=== PATIENT | male | born 1950 | race Caucasian/White ===

== ENCOUNTER 2016-12-31 13:36 | Inpatient (IN) | payer OTHER ==
--- NOTE | ~2016-12-31 | CN ---
Consultation Report [facility] [address] [place]. [address] NAME: SHONA BILLINGSLEY : 46 STATUS : ADM IN [facility]#: [id number] AGE: 66 ADM/REG DATE : 12/31/16 MR#: [id number] REPORT SERV DATE: 01/17/17 DICTATED BY: TAVON MASCORRO DATE: 01/17/17 REPORT STATUS : Draft TRANSCRIBED BY: MODL DATE: 01/17/17 DATE OF CONSULTATION: 01/17/2017 REASON FOR CONSULTATION: SVT with hemodynamic instability. HISTORY OF PRESENT ILLNESS: Mr. Billingsley is a 66-year-old man who was admitted to [facility] on 01/01/2017 with a chief complaint of shortness of breath and weakness. The patient was found to have severe anemia with a white blood cell count of 26,900. 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 The patient apparently has received chemotherapy for this. Since that time, the patient has developed a profound neutropenia, thrombocytopenia, and anemia. The patient apparently also has a diffuse colitis. Late last night, the patient developed a supraventricular tachycardia with rapid ventricular response. The patient was refractory to attempted treatment with diltiazem and esmolol. The patient developed hypotension when treated with both of these agents. The patient was later started on amiodarone. He suffered hypoxic respiratory failure earlier this morning. Cardiology service has been consulted urgently for management of the patient's SVT. The patient underwent rapid sequence intubation shortly after I arrived at the bedside. Shortly after administration of sedatives, the patient converted to normal sinus rhythm with a rate of 95 beats per minute. PAST MEDICAL HISTORY: Hypertension. The patient apparently had no other major medical problems. PAST SURGICAL HISTORY: Noncontributory. FAMILY HISTORY: The patient's parents both survived into their 80s and 90s. He has one healthy brother and two sons. There is no family history of early coronary heart disease or sudden cardiac . SOCIAL HISTORY: The patient is a long-time cigarette smoker for 42 years, but quit six years ago. He has a roughly [id number] smoking history. The patient has used alcohol in the past, but denies current alcohol use. The patient is and lives in [place], [place]. REVIEW OF SYSTEMS: Review of systems could not be performed as the patient is currently intubated and sedated. PHYSICAL EXAMINATION: VITAL SIGNS: Temperature is 100.9 degrees Fahrenheit, blood pressure is 90/52 mmHg, heart rate was 155 beats per minute prior to the patient's spontaneous conversion to normal sinus rhythm, but is presently approximately 90 beats per minute, oxygen saturation is 97% on mechanical ventilation. CONSTITUTIONAL: The patient is an overweight white man, who is currently intubated and sedated. EYES: PERRL, EOMI, clear conjunctiva. Consultation Report [place] [id number] [place]. [address] NAME: SHONA BILLINGSLEY : 46 STATUS : ADM IN [facility]#: [id number] AGE: 66 ADM/REG DATE : 12/31/16 MR#: [id number] REPORT SERV DATE: 01/17/17 DICTATED BY: TAVON MASCORRO DATE: 01/17/17 REPORT STATUS : Draft TRANSCRIBED BY: MINA DATE: 01/17/17 HEAD/MNT: NCAT with moist mucous membranes and grossly normal hard and soft palate. NECK: Supple with no obvious thyromegaly or lymphadenopathy CARDIOVASCULAR: There is a regular rhythm with a normal S1 and a physiologically split second heart sound. Heart sounds are somewhat distant; however, no significant murmurs, rubs, or gallops are noted at this time. The jugular venous pressure could not be estimated. PULMONARY: There is a diffuse expiratory wheeze noted. The lungs are otherwise clear to auscultation bilaterally with no rales appreciated. ABDOMINAL: There is moderate distention and tympany with hypoactive bowel sounds. No obvious organomegaly is noted. EXTREMITIES: There is no significant clubbing, cyanosis, or edema. A petechial rash is noted over both of the patient's feet. MUSCULOSKELETAL: Grossly normal strength and range of motion in all extremities INTEGUMENTARY: Skin appears intact with no bruises, wounds or active lesions noted NEURO/PSYC: Alert and oriented x3, with no dysarthria, facial droop or lateralizing weakness noted. 12-LEAD EKG: The patient's 12-lead EKG shows supraventricular tachycardia with what appears to be typical flutter and nonspecific ST/T-wave changes. A repeat EKG is pending, now that the patient has converted to normal sinus rhythm. CHEST X-RAY: This shows mild pulmonary vascular congestion with a grossly normal cardiomediastinal silhouette and no other acute abnormality. LABORATORY DATA: Metabolic profile shows a procalcitonin of 65.8, sodium is 139, potassium is 3.4, chloride is 102, CO2 is 23, BUN 37, creatinine is 1.91, glucose 154, calcium 6.3, magnesium 3.1, phosphorus is 2.2, total protein is 4.6, albumin 1.4, ALT is elevated at 78, AST is elevated at 106, troponin I is 0.37. TSH is 0.375. Vancomycin level is 22.4. CBC shows a white blood cell count of 0.1, hemoglobin 6.7, hematocrit 19, platelet count is 9. PTT is 45. INR is 1.9. ASSESSMENT AND PLAN: 1. Supraventricular tachycardia: The patient has a rhythm suggestive of atrial flutter. He has not converted to normal sinus rhythm. I would recommend that the patient continue on IV amiodarone load 1 mg/minute x6 hours, then 0.5 mg/minute x18 hours. We will consider continuation of IV amiodarone as the patient is likely unable to tolerate p.o. medications given his diffuse gastritis and colitis. The patient has had a recent echocardiogram performed on 01/02/2017. This shows preserved left ventricular systolic function with an ejection fraction of 56%, mild diastolic dysfunction, mild aortic insufficiency, and no other significant valvular heart disease. 2. Pancytopenia/possible overwhelming sepsis: We will defer to the Critical Care Service. Thank you for allowing me to participate in the care of Mr. Billingsley. The Cardiology Service will continue to follow the patient closely during this hospitalization. Consultation Report [address] [place]. [address] NAME: SHONA BILLINGSLEY : 46 STATUS : ADM IN [facility]#: [id number] AGE: 66 ADM/REG DATE : 12/31/16 MR#: [id number] REPORT SERV DATE: 01/17/17 DICTATED BY: TAVON MASCORRO DATE: 01/17/17 REPORT STATUS : Draft TRANSCRIBED BY: MODVenkat DATE: 01/17/17 [facility]/MINA Tavon Mascorro MD / [id number] CC: Emanuel Marie M.D.
--- NOTE | ~2016-12-31 | CN ---
Consultation Report [facility] [address] [place]. [address] NAME: SHONA COURTNEY : 46 STATUS : ADM IN [facility]#: [id number] AGE: 66 ADM/REG DATE : 12/31/16 MR#: [id number] REPORT SERV DATE: 01/16/17 DICTATED BY: ELIECER LIZ DATE: 01/16/17 REPORT STATUS : Draft TRANSCRIBED BY: MODL DATE: 01/16/17 INFECTIOUS DISEASE CONSULT. DATE OF CONSULTATION: 01/16/2017 REASON FOR CONSULTATION: Neutropenic fever and colitis. HISTORY OF PRESENT ILLNESS: This is a 66-year-old man, who was admitted to the hospital on 12/31/2016 with AML after being found to have leukocytosis, anemia, and thrombocytopenia in the setting of symptoms of progressive fatigue and shortness of breath. The patient had a PICC line placed and was started on chemotherapy on 01/01/2017 with cytarabine, idarubicin, and cladribine. This regimen also included about a week of Decadron. The patient developed mild rash on 09/11/2017. He had been placed on Levaquin on admission for concern about a possible right lower lobe pneumonia. The Levaquin was stopped. At this time too, he had developed diarrhea and a stool for C. diff was negative on 01/11/2017. He developed high fevers early on 01/13/2017 and has had a persistent high fever since then. In addition, he had persistent diarrhea and then developed nausea and vomiting yesterday. A CT scan was done of the chest, abdomen, and pelvis with IV contrast yesterday. 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 In addition, there was acute enteritis involving the jejunum with suspected stasis of the GI tract contents and mild distention of the duodenum and stomach. The CT chest showed a small subpleural pulmonary nodule, but no evidence of pneumonia and he does have a right pleural effusion. The patient's diarrhea has resolved. He had an NG tube placed this morning and his nausea and vomiting were improved. He denies abdominal pain right now, although did have some mild pain yesterday. PAST MEDICAL HISTORY: Otherwise, just notable for hypertension. ALLERGIES: NONE. PRESENT MEDICATIONS: The patient was started on cefepime on 01/12/2017 and remains on that. Vancomycin was added on 01/14/2017 and Flagyl was started this morning. He has also been on oral acyclovir and Septra double strength one tablet every Monday and . Other medications include Catapres, Lasix, Protonix, Senokot, Restoril. SOCIAL HISTORY: He is . His is here in the room along with his son and other family member. 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 Long-term cigarette user, but quit six years ago. Minimal recent alcohol use. FAMILY HISTORY: Notable for diabetes in his father. REVIEW OF SYSTEMS: As outlined above, he also has a complaint of severe dry mouth. The patient also complains of some increased shortness of breath over the past day. No cough. No genitourinary Consultation Report [address] [place]. [address] NAME: SHONA COURTNEY : 46 STATUS : ADM IN [facility]#: [id number] AGE: 66 ADM/REG DATE : 12/31/16 MR#: [id number] REPORT SERV DATE: 01/16/17 DICTATED BY: ELIECER LIZ DATE: 01/16/17 REPORT STATUS : Draft TRANSCRIBED BY: MINA DATE: 01/16/17 symptoms. PHYSICAL EXAMINATION: VITAL SIGNS: The patient weighs 98 kg. Fevers as mentioned. Blood pressure 135/72, pulse has been as high as 121, respiratory rate around 18. HEAD AND NECK: Extraocular movements intact. The oral cavity shows no thrush. I do not see any ulcers. The neck is supple. LUNGS: Decreased breath sounds in the right base, otherwise clear. CARDIAC: Tachycardic, regular. Normal S1, S2. Very soft 1/6 systolic ejection murmur. ABDOMEN: Bowel sounds are reduced. The abdomen is very soft. No significant tenderness to palpation. EXTREMITIES: Show trace edema. He has a PICC line which was placed on 01/02/2017, covered by dressing. SKIN: Exam shows some scattered petechiae and ecchymoses. LABORATORY STUDIES: White blood cell count 0.1, hemoglobin 8.2, platelets 10,000. Creatinine today is 1.70, it was 1.16 yesterday. Lactate level was 3.0. Albumin 1.8. Bilirubin 3.1, direct bilirubin 1.8. Other liver function tests essentially normal. Anion gap is 14, bicarbonate is 21. MICROBIOLOGY STUDIES: 12/31/2016, blood cultures and urinalysis negative. Sputum culture did grow sparse MSSA. 01/11/2017, C. diff negative. 01/12/2017, blood cultures and UA negative. Blood cultures were also repeated today. RADIOGRAPHIC STUDIES: As outlined above. He also had hepatic ultrasound on 01/12/2017, which was unremarkable. IMPRESSION: The patient appears to have neutropenic enterocolitis. This appears to be fairly extensive on the CT scan and includes the finding of possible pneumatosis intestinalis. He also has developed acute kidney injury. I doubt Clostridium difficile with the negative Clostridium difficile toxin assay on 01/11/2017 and the fact that his diarrhea appears to have resolved. PLAN: 1. Agree with the addition of the Flagyl today. 2. Continue vancomycin and cefepime. 3. We will add fluconazole since he certainly is at risk for concomitant candidemia. 4. I would hold the Septra. 5. Low threshold to repeat C. diff if diarrhea recurs. /MINA Eliecer Liz, Consultation Report [address] [place]. [address] NAME: SHONA COURTNEY : 46 STATUS : ADM IN [facility]#: [id number] AGE: 66 ADM/REG DATE : 12/31/16 MR#: [id number] REPORT SERV DATE: 01/16/17 DICTATED BY: ELIECER LIZ DATE: 01/16/17 REPORT STATUS : Draft TRANSCRIBED BY: MINA DATE: 01/16/17 Zo / [id number] CC: Emanuel Marie M.D.
--- NOTE | ~2016-12-31 | HP ---
History And Physical [place] [id number] [facility] [place]. [address] NAME: SHONA BILLINGSLEY : 46 STATUS : ADM IN [facility]#: [id number] AGE: 66 ADM/REG DATE : 12/31/16 MR#: [id number] REPORT SERV DATE: 01/01/17 DICTATED BY: EMANUEL HAAS DATE: 12/31/16 REPORT STATUS : Draft TRANSCRIBED BY: MODL DATE: 12/31/16 DATE OF ADMISSION: 12/31/2016 CHIEF COMPLAINT: Shortness of breath and weakness. HISTORY: Mr. Billingsley is a 66-year-old man, who had been in his usual state of fairly good health up until around April 2015 when he was having some fatigue and was noted to have hypertension. At that time, he was started on metoprolol and a hemoglobin level on 02/13/2015 was 16.6. [place] [address], and platelet count was 150,000. He then had a followup in December 2015 and metoprolol was changed to metoprolol XR. In April 2016, lisinopril/HCTZ was added to his blood pressure management plan, but this was stopped in May 2016 due to decreased blood pressure and losartan was added in July 2016. Because the patient's blood pressure remained poorly controlled, he elected to see a new physician in September 2016 and was started on chlorthalidone and other medications were stopped. At that time, he started to have increasing shortness of breath and generalized weakness, which has become progressive over the last 2 months. He finally elected emergency room evaluation. On presentation here, the patient was noted to be severely anemic with a hemoglobin of 4.4 g/dL, hematocrit of 13.6%, [place] [address], [place] [address]. The manual differential on the white blood cells was 53% segmented neutrophils, 4% bands, 18% lymphocytes, 3% monocytes, 3% metamyelocytes, 2% myelocytes, and 17% blasts. Dr. Mckay reviewed the peripheral smear confirming the blasts and then performed a bone marrow aspirate and biopsy in the emergency room. The patient is now admitted for management of what appears to be acute leukemia with suspected AML. The patient denies any recent fevers or shaking chills. Denies any generalized bony pain or abdominal pain. He has not coughed up any blood or seen any blood in urine or stool. He denies any recent skin rash or lymph node swelling. PAST MEDICAL AND SURGICAL HISTORY: Significant for the hypertension; otherwise no medical issues. ALLERGIES: HE DENIES ANY ALLERGIES TO MEDICATIONS. SOCIAL HISTORY: He lives in [place], [place], with his . 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 He does note some exposure to paint, solvents, and thinners. He has been a long time cigarette smoker for 42 years, 1 pack per day, but quit 6 years ago. He notes past history of alcohol use, but no history of chronic use, and minimal use in the recent past. FAMILY HISTORY: His mother is alive at 90 years of age with a history of anemia. His father in his 80s with a history of diabetes, hip fracture complications. He has one living brother, who is healthy at 70 years of age. He has 2 sons, who are also alive and healthy. REVIEW OF SYSTEMS: A 13-point review of systems as per HPI, otherwise unremarkable and/or negative. LABORATORY DATA: CBC as per HPI. The chemistry panel noted a creatinine of 1.29, BUN 12, History And Physical [address] [address] NAME: SHONA BILLINGSLEY : 46 STATUS : ADM IN [facility]#: [id number] AGE: 66 ADM/REG DATE : 12/31/16 MR#: [id number] REPORT SERV DATE: 01/01/17 DICTATED BY: EMANUEL HAAS DATE: 12/31/16 REPORT STATUS : Draft TRANSCRIBED BY: MODL DATE: 12/31/16 glucose 171, LDH 482, lipase is normal, troponin 0.07, BNP was 200.8. Urinalysis was normal. Procalcitonin was 0.16. Portable chest x-ray revealed mild prominence of pulmonary vasculature, but no consolidation, infiltrates, or effusions. Arterial blood gas: pH 7.49, pCO2 49, pO2 75, O2 saturation 94.6%, and that was on room air. Coagulation studies: PT was 15.2 seconds with INR 1.2 and a PTT of 27.9 seconds. IMPRESSION: 1. Suspected acute leukemia. Bone marrow biopsy and aspirate performed with preliminary results per Dr. Mckay's verbal report revealed 30% blasts, suspected AML. Flow cytometry sent out and should be available within the next 24 to 48 hours. 2. Anemia. This appears to be due to suspected acute leukemia. He is receiving packed red blood cell transfusions. Because of increased MCV, we will check B12, folate, and TSH levels. 3. Thrombocytopenia. Appears to be due to suspected acute leukemia. We will monitor that and transfuse as needed. 4. Hypertension, poorly controlled, likely exacerbated by stress associated with acute situation. We will try him on clonidine 0.1 mg twice a day and monitor response and tolerance. 5. IV access. We will need to get a PICC line placed with double-lumen per IV team tomorrow. Also need to get echocardiogram to assess baseline LVEF in preparation for chemotherapy. We will start him on allopurinol for prophylaxis of tumor lysis syndrome and monitor renal function and uric acid closely. The patient and his family were educated on the suspected diagnosis of acute myelogenous leukemia with final diagnosis to be confirmed in near future. Reading information regarding chemotherapy will be provided including Sophia-C, anthracycline, and cladribine. The 7+3 plus cladribine regimen would likely be indicated in this setting. If he has evidence of ALL, then a modification of chemotherapy plan would be provided. [facility]/MINA Emanuel Haas M.D. / [id number] CC: Zo Teran M.D.
--- NOTE | ~2016-12-31 | OP ---
Record Of Operation [facility] [address] [place]. [address] NAME: SHONA COURTNEY : 46 STATUS : ADM IN [facility]#: [id number] AGE: 66 ADM/REG DATE : 12/31/16 MR#: [id number] REPORT SERV DATE: 01/17/17 DICTATED BY: JEANETTE GLEZ DATE: 01/17/17 REPORT STATUS : Draft TRANSCRIBED BY: MODL DATE: 01/17/17 DATE OF PROCEDURE: 01/17/2017 PROCEDURE: Intubation. REASON FOR PROCEDURE: Profound sepsis, neutropenia, and respiratory failure. DESCRIPTION OF PROCEDURE: Risks and benefits of the procedure were discussed with the patient's family and they were agreeable for intubation. The patient was pre-oxygenated with 100% oxygen and monitored during the procedure. He maintained an O2 saturation greater than 94%. He was sedated with 20 mg of IV etomidate and 50 mg of IV Diprivan. A GlideScope was used for intubation. There was good visualization of the vocal cords. A #8 endotracheal tube was placed on the first attempt. Bilateral breath sounds were heard. CO2 sensor changed appropriate color from blue to yellow. The patient tolerated the procedure well. /MINA Jeanette Glez M.D. / [id number] CC: Emanuel Marie M.D.
--- NOTE | ~2016-12-31 | DS ---
Discharge Summary [facility] [address] [place]. [address] NAME: SHONA COURTNEY : 46 STATUS : DIS IN PAT#: [id number] AGE: 66 ADM/REG DATE : 12/31/16 MR#: [id number] REPORT SERV DATE: 02/06/17 DICTATED BY: TIMOTEO HAAS DATE: 02/05/17 REPORT STATUS : Draft TRANSCRIBED BY: MODVenkat DATE: 02/05/17 Data Collection from hospitalization DISCHARGE DIAGNOSIS(ES): 1. Acute myelogenous leukemia. 2. Hypertension. 3. Bronchitis/pneumonia. 4. Anemia/thrombocytopenia. 5. Anxiety. 6. Insomnia. 7. Former smoker. CONSULTATIONS: Teofilo Gillespie M.D.; Wilmer Ford M.D.; Yassine Liz M.D.; Grady Cohn M.D.; Aron Mascorro MD. PROCEDURES PERFORMED: 1. Intubation, 01/17/2017. 2. Hepatic echo, 01/12/2017. 3. CT scan of the chest with contrast and CT scan of the abdomen and pelvis with contrast, 01/15/2017. 4. Bone marrow biopsy, 12/31/2016. 5. Bone marrow biopsy, 01/16/2017. PATHOLOGY: Peripheral smear with marked leukocytosis with left shift and 15% circulating blasts and severe macrocytic anemia and thrombocytopenia. White blood cells - 26,900/mm3 with 15% blasts and prominent left shift, hemoglobin - 4.4 g/dL with MCV of 116.2, and reticulocyte count of 3.9% uncorrected, platelets - 45,000/mm3. Unilateral bone marrow biopsy and aspiration and clot section - markedly hypercellular marrow (85-90% cellularity) and marked myeloid hyperplasia and 27-30% blasts consistent with AML - Giulia MDS-derived, [id number] erythroid and megakaryocytic hypoplasia with complete myeloid maturation storage iron present. Cytogenetics pending. Bone marrow left posterior iliac crest aspiration and biopsy - markedly hypocellular bone marrow (less than 10%) with diminished trilineage hematopoiesis and 4-5% blasts. MEDICATIONS: CONDITION AT DISCHARGE: DISPOSITION: [facility]. HOSPITAL COURSE: This is a 66-year-old man who had been in his usual state of fairly good health until around April of 2015, when he was having some fatigue and was found to have hypertension. At that time, he was started on metoprolol and a hemoglobin level on 02/13/2015 was 16.6. White blood cell count at that time was 10,100 and his platelet count was 150,000. He had been to a followup in December of 2015 and metoprolol was changed to metoprolol XR. In April of 2016, lisinopril/hydrochlorothiazide was added to his blood pressure management plan, but this was stopped in May of 2016, due to decreased blood pressure and losartan was added in July of 2016. Because his blood pressure remains Discharge Summary [place] [id number] [address] NAME: SHONA COURTNEY : 46 STATUS : DIS IN PAT#: [id number] AGE: 66 ADM/REG DATE : 12/31/16 MR#: [id number] REPORT SERV DATE: 02/06/17 DICTATED BY: TIMOTEO HAAS DATE: 02/05/17 REPORT STATUS : Draft TRANSCRIBED BY: MINA DATE: 02/05/17 poorly controlled, he elected to see a new physician in September 2016 and was started on chlorthalidone and his other medications were stopped. At that time, he started having increased shortness of breath and generalized weakness, which became progressive over the past two months prior to admission. He finally elected to come to the emergency room. On presentation here, he was found to be severely anemic with a hemoglobin of 4.4 and a hematocrit of 13.6%. His white count was 26,900 and platelet count was 45,000. The manual differential white blood cells was 53% segmented neutrophils, 4% bands, 18% lymphocytes, 3% monocytes, 3% metamyelocytes, 2% myelocytes, and 17% blasts. Dr. Hall reviewed the peripheral smear confirming the blasts and then performed a bone marrow aspirate and biopsy in the emergency room. He was felt to have acute leukemia with suspected AML. He was admitted to the hospital at this time for further evaluation and treatment. Upon admission, he had not coughed up any blood and had not seen any blood in his urine or stool. It was suspected that he had acute leukemia. His anemia appeared to be due to suspected acute leukemia. He was receiving packed red blood cell transfusion. We were going to check B12 folate and TSH levels. Thrombocytopenia appeared to be due to suspected acute leukemia. He will be transfused as needed. Blood pressure was poorly controlled likely exacerbated by stress associated with the acute situation. We would try him on clonidine and monitor his response intolerance. It was felt we would need to place a PICC line with double-lumen and obtain an echocardiogram to assess baseline left ventricular ejection fraction in preparation for chemotherapy. We are going to start him on allopurinol for prophylaxis of tumor lysis syndrome and monitor renal function and uric acid closely. The patient and his family were educated on the suspected diagnosis acute myelogenous leukemia with final diagnosis to be confirmed in the near future. Information regarding chemotherapy was provided. The following day, he had shortness of breath and a cough. He did complain of insomnia and anxiety. He had no subscapular chest pain or pleurisy. A surreal was going to be started for insomnia. Xanax would be given as needed. Levaquin and albuterol nebulizers were started. Sputum culture was obtained. A PICC line was inserted. He denied any headache or confusion. He started on 7+3+cladribine. Echocardiogram was performed. On the , he had no complaints. He was less short of breath. He had no chest pain. He was transfused one unit of packed red blood cells. Chemotherapy treatment continued. Bone marrow biopsy results were reviewed. Clonidine was increased. He still complained of some insomnia. His cough was stable. IV fluids were decreased. White blood cell count was 1.7. Transfusions were continued as needed. Blood pressure was controlled. Lasix was added for his edema. Platelets were transfused. On the , he complained of having a slight sore throat, but he was eating okay. He had no shortness of breath. His cough had improved. He was tolerating chemotherapy well. IV fluids were decreased. Allopurinol was soft. Platelets were also being transfused. He did have some mouth tenderness. He had developed some diarrhea, but had no blood or abdominal pain. He had a rash that presented on his distal legs, buttocks, and back without itching. Viscous lidocaine was added to his regimen as well as Lomotil. Levaquin was stopped. He was drinking Ensure. Hepatic echo was performed. On 01/14/2017, the patient was uncomfortable. He was having fevers of 102. He had wheezing bilaterally. White blood cell count was 0.0. Vancomycin was added. C. difficile study was negative. The next day, he has had persistent fever with a T-max of 103. He was breathing better. He had persistent diarrhea. He still had some nausea. Cefepime and vancomycin Discharge Summary [facility] [address] [facility] [place] [id number] NAME: SHONA COURTNEY : 46 STATUS : DIS IN PAT#: [id number] AGE: 66 ADM/REG DATE : 12/31/16 MR#: [id number] REPORT SERV DATE: 02/06/17 DICTATED BY: TIMOTEO HAAS DATE: 02/05/17 REPORT STATUS : Draft TRANSCRIBED BY: MODL DATE: 02/05/[address] scan of the chest with contrast and CT scan of the abdomen and pelvis with contrast was performed. On the , he developed some tachypnea and abdominal distention. Nausea had worsened. Bone marrow biopsy was performed. He was seen in consultation by Dr. Teofilo Gillespie regarding acute kidney injury. His CT scan of the abdomen had revealed findings of stokes colitis with possible pneumatosis intestinalis of the sigmoid colon. His urine was dark in color with elevation of liver function tests. Medications were adjusted. Lasix was on hold. We continued Bactrim. IV fluids were adjusted. The acute kidney injury was felt multifactorial with prerenal state and probable infection, Bactrim therapy an IV contrast. Bactrim would be held if possible. IV fluids were continued. Lasix was held. He was also seen by Dr. Wilmer Ford regarding ileocolitis. CT scan revealed severe advanced ileocolitis consistent with neutropenia etiology. There was a small gas bubble that may be intraluminal in the sigmoid. There was no free air or abscess. He had proximal bowel dilatation secondary to a segment of jejunal involvement. The patient's abdomen at this time was soft and nondistended. There was a significant amount of NG tube aspirates with resolution of his previous abdominal distention according to his family. He still has some occasional diarrhea. Any surgical intervention was felt to have a very guarded prognosis. He was also seen by Dr. Yassine Liz regarding neutropenic fever and colitis. C. difficile study was negative. They felt that the patient appeared to have neutropenic enterocolitis. This appeared to be fairly extensive on his CT scan and includes the findings of possible pneumatosis intestinalis. He had also developed acute kidney injury. He was doubtful of Clostridium difficile with negative clostridium difficile study and the fact that his diarrhea had appeared to have resolved. He agreed with the addition of Flagyl. Vancomycin and cefepime were continued. Fluconazole was added. Septra was going to be held. He was also seen emergently by Dr. Grady Cohn regarding worsening respiratory status, dyspnea, tachypnea, and tachycardia. That evening, he had more tachycardia. His status had worsened overall. He was felt to have impending respiratory failure. He still had good gas exchange with actually elevated pH with a low pCO2. Since he has had increased work of breathing, there was some concern that he had early acute lung injury because of sepsis. We would try him on some BiPAP. He was felt to have sepsis syndrome. He was on good antibiotic therapy and was being followed by Infectious Disease and Nephrology for multiorgan system failure. No changes were made to his antimicrobials. He was given an extra bolus of fluid and we would try to control his heart rate. On 01/17/2017, he was seen by Dr. Aron Mascorro regarding supraventricular tachycardia with hemodynamic instability. The previous evening, the patient had developed supraventricular tachycardia with rapid ventricular response. He was refractory to attempted treatment with diltiazem and esmolol. The patient developed hypotension and was treated with both of these agents. He was later started on amiodarone. He has had hypoxic respiratory failure earlier that morning. The patient underwent rapid sequence intubation. Shortly after Dr. Mascorro's arrival, this was performed by Dr. Summer Glez. Shortly after the administration of sedatives, the patient converted to a normal sinus rhythm with a rate of 95 beats per minute. The patient had a rhythm suggestive of atrial flutter. He had not converted to a normal sinus rhythm. He recommended continuing the patient on IV amiodarone load. We would consider continuation of IV amiodarone as the patient was likely unable to tolerate oral medications given his diffuse gastritis and colitis. Echocardiogram from 01/02/2017 showed preserved left ventricular systolic function with ejection fraction of 56%, mild diastolic Discharge Summary [address] [place]. [address] NAME: SHONA COURTNEY : 46 STATUS : DIS IN PAT#: [id number] AGE: 66 ADM/REG DATE : 12/31/16 MR#: [id number] REPORT SERV DATE: 02/06/17 DICTATED BY: TIMOTEO HAAS DATE: 02/05/17 REPORT STATUS : Draft TRANSCRIBED BY: MODVenkat DATE: 02/05/17 dysfunction, mild aortic insufficiency, and no other significant valvular heart disease. The patient had pancytopenia and possible overwhelming sepsis. His T-max was 103.4, white count was 0.1. Blood cultures were negative. Creatinine level was 1.9. A PICC line was inserted. On 01/18/2017, he had no bleeding visible from his nose. His vent settings were stable. He remained off pressors. He had no recurrent supraventricular tachycardia on amiodarone drip. He had decreased urine output. Creatinine was elevated and he was felt to have anasarca. Infusions were continued as needed. TEDs/SCDs remained in place. Proton pump inhibitor continued. He remained on the ventilator. Levophed was held. CRRT was going to be performed. A vas cath was placed. White count was 0.0. His prognosis for survival was poor. He was started on CRRT. The next day, he was in a normal sinus rhythm. Empiric antibiotics were continued. Transfusions were continued. He had no further arrhythmias. It was felt critically ill with worsening pulmonary and renal functions. TPN therapy was started. CRRT was adjusted. He had persistently elevated lactate despite CRRT. On 01/21/2017, he was still on multiple pressors. Prognosis remained poor. ANC remained less than 500. He developed atrial fibrillation. IV amiodarone was given. He went back into a normal sinus rhythm. He remained in septic shock. White blood cell count was increasing and was now 0.6. Family meetings were performed. He had a very poor prognosis. The following day, he was off Levophed. Jaron-Synephrine was increased. He had no bleeding. His T-max was 100. He was felt to have typhlitis. Lactate level remained increased CRRT. The severity of his disease was discussed with his . We recommended changing his code status to a DNR. He will remain intubated on CRRT and two pressors that we would not escalate pressors. The patient's family wanted to talk about this and make a decision. He remained a full code for now. He required increased cardiac support. Comfort measures were also discussed with the patient's family. White blood cell count was now 1.3. He remained in a normal sinus rhythm on amiodarone. Phosphorus supplementation was given. Very late that evening, the patient had no spontaneous movements or reaction to verbal or tactile stimuli. He had no corneal reflex. There were no brain/lung sounds. He had no heartbeat or pulse. His family was at the bedside. The patient was pronounced at 2326 hours and released to the above-mentioned home. Information collected by: Ryann Iniguez I submit the above information as my discharge summary. TG/MODL Timoteo Haas M.D. / [id number] CC: Zo Teran M.D. Carolyn S. Heithold, CRNA Hal Hill, M.D. Claude Galphin, M.D. John Carter Hemphill, MD
--- NOTE | ~2016-12-31 | CN ---
Consultation Report [facility] [address] [place]. [address] NAME: SHONA COURTNEY : 46 STATUS : ADM IN [facility]#: [id number] AGE: 66 ADM/REG DATE : 12/31/16 MR#: [id number] REPORT SERV DATE: 01/16/17 DICTATED BY: WILMER MEHTA DATE: 01/16/17 REPORT STATUS : Draft TRANSCRIBED BY: MODL DATE: 01/16/17 SURGICAL CONSULTATION DATE OF CONSULTATION: 01/16/2017 REASON FOR CONSULTATION: Ileocolitis. HISTORY OF PRESENT ILLNESS: This 66-year-old gentleman was admitted with a history of a normal state of health until April of 2015. He was noted to have some fatigue and hypertension at that time. He was noted to have a treatment for his hypertension and subsequently later in the fall of 2015 had some shortness of breath and generalized weakness that was progressive over the past two months. He was evaluated in the emergency department and noted to be severely anemic with a hemoglobin of 4.4 g/dL and a white blood cell count of 26,900 with a platelet count of 45,000. He was felt to have an acute leukemia and was treated. He was noted to have fevers and diarrhea and subsequently had a CT scan that revealed severe advanced ileocolitis consistent with neutropenic etiology. There was a small gas bubble that may be intraluminal in the sigmoid. There is no free air or abscess. He has proximal bowel dilatation secondary to a segment of jejunal involvement. I was asked to see the patient in consultation. On exam, the patient's abdomen is soft and nondistended. He had a significant amount of NG tube aspirate with resolution of his previous abdominal distention per the family. He is having some occasional diarrhea. PAST MEDICAL HISTORY: Poorly controlled hypertension. ALLERGIES: THE PATIENT DENIES ANY ALLERGIES TO MEDICATIONS. MEDICATIONS: Please see hospital chart. SOCIAL HISTORY: The patient lives in [place], [place]. He is . He is retired as a structural steel painter in the past. He has a 42-pack year history of cigarette smoking and quit approximately six years ago. He denies illicit drug usage and occasional alcohol usage. FAMILY HISTORY: Positive for diabetes. REVIEW OF SYSTEMS: No headache, blurred vision, or dizziness. He has some weakness and dyspnea. He has no abdominal plain. He does have diarrhea. There is no history of hematemesis, coffee-grounds emesis, bright red blood per rectum, or melena. The rest of the 13-point review of systems was unremarkable or negative as per HPI. PHYSICAL EXAMINATION: GENERAL: Well-developed ill-appearing male with an NG tube. NECK: Supple. No adenopathy. CARDIOVASCULAR: Regular rate and rhythm. Consultation Report [place] [address] [place]. [address] NAME: SHONA COURTNEY : 46 STATUS : ADM IN [facility]#: [id number] AGE: 66 ADM/REG DATE : 12/31/16 MR#: [id number] REPORT SERV DATE: 01/16/17 DICTATED BY: WILMER MEHTA DATE: 01/16/17 REPORT STATUS : Draft TRANSCRIBED BY: MINA DATE: 01/16/17 RESPIRATORY: Clear to auscultation. ABDOMEN: Obese, soft, nondistended, and nontender. No masses. BACK: No CVA tenderness. EXTREMITIES: The patient has bruising throughout the skin and 1 to 2+ edema of his lower extremities. LABS: Please see hospital chart. IMAGING: As above. ASSESSMENT: 1. Neutropenic ileocolitis with extensive involvement. 2. Acute leukemia. 3. Hypertension. PLAN: At this time, the patient will have an optimization of his medical care with broad- spectrum IV antibiotics and serial physical exam. We will reserve surgery for failure of medical therapy or complication such as pneumoperitoneum, GI hemorrhage, or acute ischemia. Any surgical intervention would have a very guarded prognosis. EMILY/MINA Wilmer Mehta M.D. / [id number] CC: Zo Teran M.D.
--- NOTE | ~2016-12-31 | CN ---
Consultation Report [facility] [address] [place]. [address] NAME: SHONA BILLINGSLEY : 46 STATUS : ADM IN [facility]#: [id number] AGE: 66 ADM/REG DATE : 12/31/16 MR#: [id number] REPORT SERV DATE: 01/17/17 DICTATED BY: ROCHELLE COHN DATE: 01/16/17 REPORT STATUS : Draft TRANSCRIBED BY: MODVenkat DATE: 01/16/17 DATE OF CONSULTATION: This was an emergent consult called on 01/16/2017. REASON FOR CONSULTATION: Worsening respiratory status, dyspnea, tachypnea, and tachycardia. Mr. Billingsley has been here since 09/30/2017. He is a 66-year-old man with new diagnosis of acute leukemia, suspected AML, status post induction of chemo, and profound neutropenia with presumed enterocolitis and persistent neutropenic sepsis. He has been in acute renal failure. He has had difficulty with IV access and thrombocytopenia, and tonight he has had more tachycardia, so we were asked to see him because of his worsening overall status. He states that he feels tired. He denies chest pain. PAST MEDICAL HISTORY: Most significant for leukemia. REVIEW OF SYSTEMS: Review of 10 systems was limited since he is fairly tachypneic and fatigued. It is positive mostly for what was noted above and he has been febrile here. FAMILY HISTORY: Noncontributory for this acute presentation. PHYSICAL EXAMINATION: GENERAL: On exam, he is awake, alert, very tachypneic with a heart rate of about 180. HEENT: Normocephalic and atraumatic. NECK: Supple. No lymphadenopathy. No JVD. CHEST: Symmetric with good expansion bilaterally. He has coarse breath sounds bilaterally. CARDIOVASCULAR: He has S1 and S2, which are regular rate and rhythm. ABDOMEN: Benign. EXTREMITIES: He has no edema, no clubbing, no cyanosis. ASSESSMENT AND PLAN: 1. Impending respiratory failure. The patient has tachypnea with a relative hypoxemia and increased oxygen requirement, but still good gas exchange with actually elevated pH with a low pCO2. Since he has had increased work of breathing, some concern he has early acute lung injury because of his sepsis. We will try him on some BiPAP. 2. He has sepsis syndrome. He is on good antibiotic therapy and is being followed by Infectious Diseases and Nephrology for his multiorgan system failure. We have not made changes to his antimicrobials, but we have given him an extra bolus of fluid and we will try and control his heart rate. We will try and discuss his prognosis and plan of care with Hematology/Oncology. We appreciate the opportunity to participate in his care with you. Consultation Report [place] [id number] [address] NAME: SHONA BILLINGSLEY : 46 STATUS : ADM IN [facility]#: [id number] AGE: 66 ADM/REG DATE : 12/31/16 MR#: [id number] REPORT SERV DATE: 01/17/17 DICTATED BY: ROCHELLE COHN DATE: 01/16/17 REPORT STATUS : Draft TRANSCRIBED BY: MINA DATE: 01/16/17 SOFÍA/MINA Rochelle Cohn M.D. / [id number]
--- NOTE | ~2016-12-31 | CN ---
Consultation Report [facility] [address] [place]. [address] NAME: SHONA COURTNEY : 46 STATUS : ADM IN [facility]#: [id number] AGE: 66 ADM/REG DATE : 12/31/16 MR#: [id number] REPORT SERV DATE: 01/16/17 DICTATED BY: AMNA ASHTON DATE: 01/16/17 REPORT STATUS : Draft TRANSCRIBED BY: MODL DATE: 01/16/17 NEPHROLOGY CONSULTATION DATE OF CONSULTATION: 01/16/2017 INDICATION FOR CONSULTATION: Acute kidney injury. HISTORY OF PRESENT ILLNESS: The patient is a 66-year-old male who is seen for acute kidney injury following admission for acute leukemia. He has undergone bone marrow when studies revealed acute myelogenous leukemia. He has been given induction therapy with cytarabine, idarubicin, and cladribine. The patient is currently pancytopenic and has had protracted fever episodes with maximal temp of 103.4. He underwent CT scan of his abdomen with contrast on 01/16/2016, due to protracted diarrhea with nausea, vomiting, and some abdominal discomfort. Findings demonstrated pancolitis with possible pneumatosis intestinalis of the sigmoid colon. His urine has been dark in color with elevation of his liver function test. Medicines have been adjusted with recent hold on Lasix, continuation of Bactrim, and adjustment of IV fluids. PAST MEDICAL HISTORY: Hypertension, otherwise negative. SOCIAL HISTORY: Remote smoker, quit 6 years ago with 42 pack-year history. Intermittent social use of alcohol, no chronic use. No illicit drug use. FAMILY HISTORY: Mother is alive with history of anemia. Father in 80s with complications of hip fracture and had underlying diabetes. Two sons who are alive and healthy. REVIEW OF SYSTEMS: HEENT: No change in visual acuity. No epistaxis. No otic infection. No pharyngitis. PULMONARY: Has had cough and some shortness of breath. No hemoptysis. CARDIAC: Denies chest pain, dizziness. GI: Protracted nausea, vomiting, diarrhea; some abdominal discomfort. : No gross hematuria or dysuria. MUSCULOSKELETAL: Some pain in back. INTEGUMENT: He has noted bruising and some transient rash. NEUROLOGIC: No seizure activity or lateralizing weakness. Remainder of 12-point review of systems negative. PHYSICAL EXAMINATION: VITAL SIGNS: Blood pressure 135/72, temperature 99.8, pulse 102, and respiratory rate 34. GENERAL: Pleasant male, alert, cooperative. HEENT: Eyes, no scleral icterus. Pupils equal, reactive to light. Extraocular movement intact. Nares with right NG tube in place. Throat, no injection. Mucous membranes moist. Consultation Report [place] [id number] [address] NAME: SHONA COURTNEY : 46 STATUS : ADM IN [facility]#: [id number] AGE: 66 ADM/REG DATE : 12/31/16 MR#: [id number] REPORT SERV DATE: 01/16/17 DICTATED BY: AMNA ASHTON DATE: 01/16/17 REPORT STATUS : Draft TRANSCRIBED BY: MINA DATE: 01/16/17 NECK: No thyromegaly, masses, or bruits. CHEST/LUNGS: Late crackles posteriorly. No wheezing. No dullness. CARDIAC: Regular tachycardia. No murmur, gallop, or rub. ABDOMEN: Bowel sounds present. No guarding but mild diffuse tenderness. No hepatosplenomegaly. : Indwelling Gunter. RECTAL: Not performed. EXTREMITIES: No edema. No calf tenderness. DERMIS: No overt rash. Noted bruises. No skin lesions. NEUROLOGIC: Cranial nerves intact. No lateralizing weakness. MUSCULOSKELETAL: No joint tenderness. No deformity. IMPRESSION: 1. Acute kidney injury likely multifactorial with prerenal state, probable infection, Bactrim therapy, and IV contrast. 2. Acute myelogenous leukemia, status post induction with cytarabine, idarubicin, and cladribine. 3. Right lower lobe pneumonia with methicillin-susceptible Staphylococcus aureus in sputum. 4. Hypertension. 5. Pancytopenia. 6. Stomatitis/mucositis. 7. Abdominal aortic aneurysm infrarenal 3.5 cm in diameter. 8. Right lower lobe pulmonary nodule. 9. Pancolitis with possible pneumatosis intestinalis of the sigmoid colon. 10.Elevated liver function test. PLAN: 1. Lab. 2. Hold Bactrim if possible. 3. Concur with IV fluids and holding Lasix. 4. We will follow. ERIN/MINA na Ashton M.D. / [id number] CC: Emanuel Marie M.D.
[2016-12-31 11:41] LABS: BASOPHILS 0.2 %; BASOPHILS ABSOLUTE 0.06 10/3/uL (0.0-0.16); EOSINOPHILS 0 %; EOSINOPHILS ABSOLUTE 0.01 10/3/uL (0.0-0.53); MEAN CORPUS HGB CONC 32.4 g/dL (32.0-36.0); MEAN PLATELET VOLUME 9.9 fL (9.2-13.0); NUCLEATED RED BLOOD CELLS 1.9 /100WBC (0-0); RBC DISTRIBUTION WIDTH 20.7 % (12.0-16.0)
[2016-12-31 11:42] LABS: ER CBC TAT 0 Hrs 16 Mins; HEMATOCRIT 13.6 % (40.0-51.0); HEMOGLOBIN 4.4 g/dL (13.6-17.8); MEAN CORPUSCULAR VOLUME 116.2 fL (80-100); RED CELL COUNT 1.17 10/6/uL (4.7-6.1); WHITE BLOOD CELLS 26.9 10/3/uL (4.5-10.5)
[2016-12-31 11:43] LABS: MANUAL DIFF NO %; MEAN CORPUSCULAR HEMOGLOB 37.6 pg (26.0-34.0); PLATELET COUNT 45 10/3/uL (150-400)
[2016-12-31 11:52] LABS: INTERNATIONAL NORMAL RATI 1.2 UNITS (-); PARTIAL THROMBO TIME 27.9 SEC (22.5-37.2); PROTIME (NOT ORD) 15.2 SEC (12.0-14.5)
[2016-12-31 11:54] LABS: BUN (BLOOD UREA NITROGEN) 12 MG/DL (6-23); CALCIUM, SERUM 8.4 MG/DL (8.5-10.4); CHLORIDE, SERUM 107 MMOL/L (96-112); CREATININE 1.29 MG/DL (0.70-1.30); GFR AFRICAN AMERICAN 66 ML/MIN (>=60); GFR NON AFRICAN AMERICAN 57 ML/MIN (>=60); SODIUM, SERUM 140 MMOL/L (135-148)
[2016-12-31 12:00] LABS: CO2 (CARBON DIOXIDE) 22 MMOL/L (24-34); GLUCOSE, SERUM 171 MG/DL (60-99)
[2016-12-31 12:03] LABS: CHEST PAIN PROFILE TAT 0 Hrs 37 Mins; TROPONIN I 0.07 NG/ML (<0.05)
[2016-12-31 12:34] LABS: BAND NEUTROPHILS 4 %; BLASTS 17 % (0); ER DIFF TAT 1 Hrs 08 Mins; IMMATURE GRANS ABSOLUTE (CALC) 1.35 10/3/uL (0.0-0.11); LYMPHOCYTES 18 %; LYMPHOCYTES ABSOLUTE (CALC) 4.84 10/3/uL (0.67-4.30); METAMYELOCYTES 3 %; MONOCYTES 3 %; MONOCYTES ABSOLUTE (CALC) 0.81 10/3/uL (0.21-1.20); MYELOCYTES 2 %; NEUTROPHILS ABSOLUTE (CALC) 15.33 10/3/uL (2.02-8.40); SEGMENTED NEUTROPHIL (0) 53 %; TOTAL NUCLEATED CELLS 100
[2016-12-31 12:35] LABS: ANISOCYTOSIS 1+ (5-10/OIF) (0-5/OIF); OVALOCYTES 1+ (3-10/OIF) (0-2/OIF); TEARDROP SHAPED RBCS OCC (0-2/OIF)
[2016-12-31 13:03] LABS: ASCORBIC ACID (UR NOT ORDER) 40 (NEG); BILIRUBIN, URINE NEGATIVE (NEG); ER URINALYSIS TAT 0 Hrs 10 Mins; KETONE, URINE NEGATIVE (NEG); LEUKOCYTE ESTERASE(NOT OR NEG (NEG); NITRITE (URINE) NEG (NEG); WBC (NOT ORDERED) (RFLEX) 1 (0-5)
[2016-12-31 13:03] LABS: PROCALCITONIN 0.16 ng/mL (<0.5)
[2016-12-31 13:06] LABS: ALBUMIN 3.5 G/DL (3.5-5.0); ALKALINE PHOSPHATASE 70 U/L (45-117); DIRECT BILIRUBIN 0.3 MG/DL (0.0-0.4); INDIRECT BILIRUBIN(NOT ORDER) 0.7 MG/DL (0.1-0.9); SGOT(AST) 20 U/L (5-40); SGPT(ALT) 29 U/L (5-65); TOTAL PROTEIN 7.1 G/DL (6.0-8.5)
[~2016-12-31 13:36] MED LIST: HALF81 PO
[2016-12-31 14:49] LABS: BE (BASE EXCESS) -4.4 MEQ/L (0 +/- 2.5); CARBOXYHEMOGLOBIN 2.4 % (0-3); HCO3 (ACTUAL BICARBONATE) 18.8 MEQ/L (23-27); HEMOBLOGIN CONTENT 4.5 G/DL (14-18); INSTRUMENT SERIAL # 8087; METHEMOGLOBIN 0.2 % (0-3); PCO2 (CO2 TENSION) 25 MMHG (35-45); PO2 (O2 TENSION) 75 MMHG (79-93); pH 7.49 (7.37-7.43)
[2016-12-31 14:50] LABS: ALLENS TEST Pos; SAMPLE Arterial
[2016-12-31 15:09] LABS: RETICULOCYTE COUNT 3.9 % (0.5-2.9); RETICULOCYTE COUNT ABSOLUTE 66.8 10/3/uL (20.2-119.8)
[2016-12-31 18:23] LABS: FOLATE 14.8 NG/ML (>5.2)
[2017-01-01 07:04] LABS: MEAN CORPUS HGB CONC 33.5 g/dL (32.0-36.0); NUCLEATED RED BLOOD CELLS 1.2 /100WBC (0-0)
[2017-01-01 07:15] LABS: HEMATOCRIT 16.7 % (40.0-51.0); HEMOGLOBIN 5.6 g/dL (13.6-17.8); MEAN CORPUSCULAR VOLUME 99.4 fL (80-100); RED CELL COUNT 1.68 10/6/uL (4.7-6.1); WHITE BLOOD CELLS 15.4 10/3/uL (4.5-10.5)
[2017-01-01 07:16] LABS: MEAN CORPUSCULAR HEMOGLOB 33.3 pg (26.0-34.0); PLATELET COUNT 29 10/3/uL (150-400)
[2017-01-01 07:17] LABS: MANUAL DIFF YES %
[2017-01-01 08:31] LABS: BUN (BLOOD UREA NITROGEN) 14 MG/DL (6-23); CHLORIDE, SERUM 109 MMOL/L (96-112); CO2 (CARBON DIOXIDE) 22 MMOL/L (24-34); CREATININE 0.98 MG/DL (0.70-1.30); GFR AFRICAN AMERICAN 91 ML/MIN (>=60); GFR NON AFRICAN AMERICAN 79 ML/MIN (>=60); GLUCOSE, SERUM 120 MG/DL (60-99); POTASSIUM, SERUM 3.6 MMOL/L (3.5-5.3); SODIUM, SERUM 142 MMOL/L (135-148)
[2017-01-01 09:45] LABS: BAND NEUTROPHILS 5 %; BLASTS 17 % (0); IMMATURE GRANS ABSOLUTE (CALC) 0.62 10/3/uL (0.0-0.11); LYMPHOCYTES 18 %; LYMPHOCYTES ABSOLUTE (CALC) 2.77 10/3/uL (0.67-4.30); MACROCYTES 1+ (5-10/OIF) (0-5/OIF); METAMYELOCYTES 3 %; MONOCYTES 5 %; MONOCYTES ABSOLUTE (CALC) 0.77 10/3/uL (0.21-1.20); MYELOCYTES 1 %; NEUTROPHILS ABSOLUTE (CALC) 8.62 10/3/uL (2.02-8.40); SEGMENTED NEUTROPHIL (0) 51 %; TOTAL NUCLEATED CELLS 100
[2017-01-02 05:25] LABS: BUN (BLOOD UREA NITROGEN) 17 MG/DL (6-23); CALCIUM, SERUM 7.5 MG/DL (8.5-10.4); CHLORIDE, SERUM 106 MMOL/L (96-112); CO2 (CARBON DIOXIDE) 23 MMOL/L (24-34); GFR AFRICAN AMERICAN 89 ML/MIN (>=60); GFR NON AFRICAN AMERICAN 77 ML/MIN (>=60); GLUCOSE, SERUM 142 MG/DL (60-99); POTASSIUM, SERUM 3.8 MMOL/L (3.5-5.3); SODIUM, SERUM 139 MMOL/L (135-148)
[2017-01-02 05:27] LABS: MEAN CORPUS HGB CONC 34.5 g/dL (32.0-36.0); MEAN CORPUSCULAR HEMOGLOB 31.1 pg (26.0-34.0); MEAN PLATELET VOLUME 9.3 fL (9.2-13.0); RBC DISTRIBUTION WIDTH 24.2 % (12.0-16.0); WHITE BLOOD CELLS 20.7 10/3/uL (4.5-10.5)
[2017-01-02 05:29] LABS: HEMOGLOBIN 7.1 g/dL (13.6-17.8); RED CELL COUNT 2.28 10/6/uL (4.7-6.1)
[2017-01-02 05:30] LABS: HEMATOCRIT 20.6 % (40.0-51.0); MANUAL DIFF YES %; MEAN CORPUSCULAR VOLUME 90.4 fL (80-100); PLATELET COUNT 19 10/3/uL (150-400)
[2017-01-02 06:57] LABS: BAND NEUTROPHILS 9 %; BLASTS 17 % (0); IMMATURE GRANS ABSOLUTE (CALC) 0.62 10/3/uL (0.0-0.11); LYMPHOCYTES 9 %; LYMPHOCYTES ABSOLUTE (CALC) 1.86 10/3/uL (0.67-4.30); METAMYELOCYTES 2 %; MONOCYTES 5 %; MONOCYTES ABSOLUTE (CALC) 1.04 10/3/uL (0.21-1.20); MYELOCYTES 1 %; NEUTROPHILS ABSOLUTE (CALC) 13.66 10/3/uL (2.02-8.40); PLATELET ESTIMATE DEC (ADEQUATE); SEGMENTED NEUTROPHIL (0) 57 %; TOTAL NUCLEATED CELLS 100
[2017-01-03 03:38] LABS: MEAN CORPUS HGB CONC 35.5 g/dL (32.0-36.0); MEAN CORPUSCULAR VOLUME 90.1 fL (80-100); MEAN PLATELET VOLUME 11.1 fL (9.2-13.0); RED CELL COUNT 2.03 10/6/uL (4.7-6.1)
[2017-01-03 03:39] LABS: HEMATOCRIT 18.3 % (40.0-51.0); HEMOGLOBIN 6.5 g/dL (13.6-17.8); MANUAL DIFF YES %; PLATELET COUNT 16 10/3/uL (150-400)
[2017-01-03 04:14] LABS: ANISOCYTOSIS 4+ (>50/OIF) (0-5/OIF); BLASTS 13 % (0); IMMATURE GRANS ABSOLUTE (CALC) 0.32 10/3/uL (0.0-0.11); LYMPHOCYTES 28 %; LYMPHOCYTES ABSOLUTE (CALC) 2.24 10/3/uL (0.67-4.30); METAMYELOCYTES 2 %; MONOCYTES 2 %; MONOCYTES ABSOLUTE (CALC) 0.16 10/3/uL (0.21-1.20); MYELOCYTES 2 %; NEUTROPHILS ABSOLUTE (CALC) 4.24 10/3/uL (2.02-8.40); PLATELET ESTIMATE DEC (ADEQUATE); SEGMENTED NEUTROPHIL (0) 53 %; TOTAL NUCLEATED CELLS 100
[2017-01-03 15:29] LABS: BUN (BLOOD UREA NITROGEN) 20 MG/DL (6-23); CALCIUM, SERUM 7.8 MG/DL (8.5-10.4); CHLORIDE, SERUM 106 MMOL/L (96-112); CO2 (CARBON DIOXIDE) 23 MMOL/L (24-34); CREATININE 1.06 MG/DL (0.70-1.30); GFR AFRICAN AMERICAN 83 ML/MIN (>=60); GFR NON AFRICAN AMERICAN 72 ML/MIN (>=60); GLUCOSE, SERUM 171 MG/DL (60-99); POTASSIUM, SERUM 4.1 MMOL/L (3.5-5.3); SODIUM, SERUM 141 MMOL/L (135-148)
[2017-01-04 03:45] LABS: HEMOGLOBIN 7.8 g/dL (13.6-17.8); MEAN CORPUSCULAR HEMOGLOB 31.7 pg (26.0-34.0); MEAN CORPUSCULAR VOLUME 90.7 fL (80-100); MEAN PLATELET VOLUME 10.9 fL (9.2-13.0); RBC DISTRIBUTION WIDTH 20.7 % (12.0-16.0)
[2017-01-04 03:59] LABS: CALCIUM, SERUM 7.6 MG/DL (8.5-10.4); CHLORIDE, SERUM 107 MMOL/L (96-112); CO2 (CARBON DIOXIDE) 25 MMOL/L (24-34); GFR AFRICAN AMERICAN 89 ML/MIN (>=60); GFR NON AFRICAN AMERICAN 77 ML/MIN (>=60); POTASSIUM, SERUM 3.9 MMOL/L (3.5-5.3); SODIUM, SERUM 140 MMOL/L (135-148)
[2017-01-04 04:07] LABS: BUN (BLOOD UREA NITROGEN) 24 MG/DL (6-23); GLUCOSE, SERUM 123 MG/DL (60-99); HEMATOCRIT 22.3 % (40.0-51.0); PLATELET COUNT 13 10/3/uL (150-400); RED CELL COUNT 2.46 10/6/uL (4.7-6.1); WHITE BLOOD CELLS 3.8 10/3/uL (4.5-10.5)
[2017-01-04 04:08] LABS: MANUAL DIFF YES %
[2017-01-04 06:13] LABS: BAND NEUTROPHILS 1 %; IMMATURE GRANS ABSOLUTE (CALC) 0.04 10/3/uL (0.0-0.11); LYMPHOCYTES 34 %; LYMPHOCYTES ABSOLUTE (CALC) 1.29 10/3/uL (0.67-4.30); METAMYELOCYTES 1 %; MONOCYTES 2 %; MONOCYTES ABSOLUTE (CALC) 0.08 10/3/uL (0.21-1.20); NEUTROPHILS ABSOLUTE (CALC) 2.39 10/3/uL (2.02-8.40); SEGMENTED NEUTROPHIL (0) 62 %; TOTAL NUCLEATED CELLS 100
[2017-01-04 06:14] LABS: ANISOCYTOSIS 1+ (5-10/OIF) (0-5/OIF)
[2017-01-05 07:18] LABS: BASOPHILS 0 %; EOSINOPHILS 0.3 %; EOSINOPHILS ABSOLUTE 0.01 10/3/uL (0.0-0.53); HEMATOCRIT 22.2 % (40.0-51.0); HEMOGLOBIN 7.8 g/dL (13.6-17.8); IMMATURE GRANULOCYTES ABSOLUTE 0.03 10/3/uL (0.0-0.11); LYMPHOCYTES 12.7 %; LYMPHOCYTES ABSOLUTE 0.38 10/3/uL (0.67-4.30); MEAN CORPUS HGB CONC 35.1 g/dL (32.0-36.0); MEAN CORPUSCULAR HEMOGLOB 32.2 pg (26.0-34.0); MEAN CORPUSCULAR VOLUME 91.7 fL (80-100); MEAN PLATELET VOLUME 10.5 fL (9.2-13.0); MONOCYTES ABSOLUTE 0.24 10/3/uL (0.21-1.20); NEUTROPHILS ABSOLUTE 2.33 10/3/uL (2.02-8.40); RBC DISTRIBUTION WIDTH 20.5 % (12.0-16.0); RED CELL COUNT 2.42 10/6/uL (4.7-6.1)
[2017-01-05 07:19] LABS: MANUAL DIFF NO %; PLATELET COUNT 8 10/3/uL (150-400)
[2017-01-05 07:30] LABS: CHLORIDE, SERUM 106 MMOL/L (96-112); CO2 (CARBON DIOXIDE) 24 MMOL/L (24-34); CREATININE 0.85 MG/DL (0.70-1.30); GFR AFRICAN AMERICAN 104 ML/MIN (>=60); GFR NON AFRICAN AMERICAN 90 ML/MIN (>=60); SODIUM, SERUM 141 MMOL/L (135-148)
[2017-01-05 07:32] LABS: BUN (BLOOD UREA NITROGEN) 20 MG/DL (6-23); GLUCOSE, SERUM 95 MG/DL (60-99)
[2017-01-05 07:38] LABS: ANISOCYTOSIS 1+ (5-10/OIF) (0-5/OIF)
[2017-01-06 05:10] LABS: BASOPHILS 0 %; EOSINOPHILS 0 %; HEMATOCRIT 21.6 % (40.0-51.0); HEMOGLOBIN 7.2 g/dL (13.6-17.8); IMMATURE GRANULOCYTES 0.7 %; IMMATURE GRANULOCYTES ABSOLUTE 0.02 10/3/uL (0.0-0.11); LYMPHOCYTES 16.8 %; LYMPHOCYTES ABSOLUTE 0.47 10/3/uL (0.67-4.30); MEAN CORPUSCULAR HEMOGLOB 30.5 pg (26.0-34.0); MEAN CORPUSCULAR VOLUME 91.5 fL (80-100); MEAN PLATELET VOLUME 9.7 fL (9.2-13.0); MONOCYTES 1.4 %; MONOCYTES ABSOLUTE 0.04 10/3/uL (0.21-1.20); NEUTROPHILS 81.1 %; NEUTROPHILS ABSOLUTE 2.26 10/3/uL (2.02-8.40); RBC DISTRIBUTION WIDTH 20.4 % (12.0-16.0); RED CELL COUNT 2.36 10/6/uL (4.7-6.1); WHITE BLOOD CELLS 2.8 10/3/uL (4.5-10.5)
[2017-01-06 05:13] LABS: MANUAL DIFF NO %; MEAN CORPUS HGB CONC 33.3 g/dL (32.0-36.0); PLATELET COUNT 18 10/3/uL (150-400)
[2017-01-06 05:29] LABS: BUN (BLOOD UREA NITROGEN) 19 MG/DL (6-23); CALCIUM, SERUM 8.1 MG/DL (8.5-10.4); CHLORIDE, SERUM 107 MMOL/L (96-112); CO2 (CARBON DIOXIDE) 24 MMOL/L (24-34); CREATININE 0.83 MG/DL (0.70-1.30); GFR AFRICAN AMERICAN 105 ML/MIN (>=60); GFR NON AFRICAN AMERICAN 90 ML/MIN (>=60); GLUCOSE, SERUM 92 MG/DL (60-99); SODIUM, SERUM 140 MMOL/L (135-148)
[2017-01-06 06:22] LABS: ANISOCYTOSIS 1+ (5-10/OIF) (0-5/OIF)
[2017-01-06 06:23] LABS: POLYCHROMASIA 1+ (2-5/OIF) (0-1/OIF)
[2017-01-07 07:04] LABS: MEAN CORPUS HGB CONC 33.7 g/dL (32.0-36.0); MEAN CORPUSCULAR HEMOGLOB 31.1 pg (26.0-34.0); MEAN CORPUSCULAR VOLUME 92.3 fL (80-100); MEAN PLATELET VOLUME 10.8 fL (9.2-13.0); RBC DISTRIBUTION WIDTH 19.8 % (12.0-16.0); RED CELL COUNT 2.09 10/6/uL (4.7-6.1)
[2017-01-07 07:08] LABS: HEMATOCRIT 19.3 % (40.0-51.0); HEMOGLOBIN 6.5 g/dL (13.6-17.8); PLATELET COUNT 13 10/3/uL (150-400); WHITE BLOOD CELLS 1.7 10/3/uL (4.5-10.5)
[2017-01-07 07:10] LABS: MANUAL DIFF YES %
[2017-01-07 07:15] LABS: BUN (BLOOD UREA NITROGEN) 18 MG/DL (6-23); CALCIUM, SERUM 7.7 MG/DL (8.5-10.4); CHLORIDE, SERUM 106 MMOL/L (96-112); CO2 (CARBON DIOXIDE) 24 MMOL/L (24-34); CREATININE 0.76 MG/DL (0.70-1.30); GFR AFRICAN AMERICAN 109 ML/MIN (>=60); GFR NON AFRICAN AMERICAN 94 ML/MIN (>=60); GLUCOSE, SERUM 85 MG/DL (60-99); POTASSIUM, SERUM 3.7 MMOL/L (3.5-5.3); SODIUM, SERUM 139 MMOL/L (135-148)
[2017-01-07 08:00] LABS: LYMPHOCYTES 12 %; MONOCYTES 2 %; MONOCYTES ABSOLUTE (CALC) 0.03 10/3/uL (0.21-1.20); NEUTROPHILS ABSOLUTE (CALC) 1.46 10/3/uL (2.02-8.40); SEGMENTED NEUTROPHIL (0) 86 %; TOTAL NUCLEATED CELLS 100
[2017-01-07 08:01] LABS: ANISOCYTOSIS 1+ (5-10/OIF) (0-5/OIF); HYPERSEGMENTED NEUT FEW (6-10%) % (0-5); MACROCYTES 1+ (5-10/OIF) (0-5/OIF)
[2017-01-08 06:50] LABS: MEAN CORPUS HGB CONC 34.2 g/dL (32.0-36.0); MEAN CORPUSCULAR HEMOGLOB 30.7 pg (26.0-34.0); MEAN CORPUSCULAR VOLUME 89.9 fL (80-100); MEAN PLATELET VOLUME 9.3 fL (9.2-13.0); RBC DISTRIBUTION WIDTH 18.6 % (12.0-16.0)
[2017-01-08 06:51] LABS: HEMATOCRIT 23.1 % (40.0-51.0); HEMOGLOBIN 7.9 g/dL (13.6-17.8); PLATELET COUNT 6 10/3/uL (150-400); RED CELL COUNT 2.57 10/6/uL (4.7-6.1)
[2017-01-08 06:52] LABS: MANUAL DIFF YES %
[2017-01-08 06:53] LABS: BUN (BLOOD UREA NITROGEN) 16 MG/DL (6-23); CALCIUM, SERUM 7.6 MG/DL (8.5-10.4); CHLORIDE, SERUM 105 MMOL/L (96-112); CO2 (CARBON DIOXIDE) 24 MMOL/L (24-34); CREATININE 0.74 MG/DL (0.70-1.30); GFR AFRICAN AMERICAN 110 ML/MIN (>=60); GFR NON AFRICAN AMERICAN 95 ML/MIN (>=60); GLUCOSE, SERUM 85 MG/DL (60-99); POTASSIUM, SERUM 3.9 MMOL/L (3.5-5.3); SODIUM, SERUM 138 MMOL/L (135-148)
[2017-01-08 07:22] LABS: BAND NEUTROPHILS 2 %; LYMPHOCYTES 32 %; LYMPHOCYTES ABSOLUTE (CALC) 0.32 10/3/uL (0.67-4.30); MONOCYTES 2 %; MONOCYTES ABSOLUTE (CALC) 0.02 10/3/uL (0.21-1.20); NEUTROPHILS ABSOLUTE (CALC) 0.66 10/3/uL (2.02-8.40); SEGMENTED NEUTROPHIL (0) 64 %; TOTAL NUCLEATED CELLS 100
[2017-01-08 07:23] LABS: ANISOCYTOSIS 1+ (5-10/OIF) (0-5/OIF); MACROCYTES 1+ (5-10/OIF) (0-5/OIF)
[2017-01-09 05:21] LABS: HEMATOCRIT 21.9 % (40.0-51.0); HEMOGLOBIN 7.5 g/dL (13.6-17.8); MEAN CORPUS HGB CONC 34.2 g/dL (32.0-36.0); MEAN CORPUSCULAR HEMOGLOB 30.7 pg (26.0-34.0); MEAN CORPUSCULAR VOLUME 89.8 fL (80-100); MEAN PLATELET VOLUME 9.3 fL (9.2-13.0); RBC DISTRIBUTION WIDTH 18.3 % (12.0-16.0); RED CELL COUNT 2.44 10/6/uL (4.7-6.1)
[2017-01-09 05:23] LABS: PLATELET COUNT 16 10/3/uL (150-400); WHITE BLOOD CELLS 0.4 10/3/uL (4.5-10.5)
[2017-01-09 05:24] LABS: MANUAL DIFF YES %
[2017-01-09 05:37] LABS: BUN (BLOOD UREA NITROGEN) 14 MG/DL (6-23); CALCIUM, SERUM 7.7 MG/DL (8.5-10.4); CHLORIDE, SERUM 108 MMOL/L (96-112); CO2 (CARBON DIOXIDE) 24 MMOL/L (24-34); CREATININE 0.76 MG/DL (0.70-1.30); GFR AFRICAN AMERICAN 109 ML/MIN (>=60); GFR NON AFRICAN AMERICAN 94 ML/MIN (>=60); GLUCOSE, SERUM 86 MG/DL (60-99); POTASSIUM, SERUM 3.6 MMOL/L (3.5-5.3); SODIUM, SERUM 142 MMOL/L (135-148)
[2017-01-09 06:31] LABS: ANISOCYTOSIS 1+ (5-10/OIF) (0-5/OIF); LYMPHOCYTES 52 %; LYMPHOCYTES ABSOLUTE (CALC) 0.21 10/3/uL (0.67-4.30); NEUTROPHILS ABSOLUTE (CALC) 0.19 10/3/uL (2.02-8.40); SEGMENTED NEUTROPHIL (0) 48 %; TOTAL NUCLEATED CELLS 50
[2017-01-09 06:32] LABS: TEARDROP SHAPED RBCS OCC (0-2/OIF)
[2017-01-10 05:51] LABS: HEMATOCRIT 22.8 % (40.0-51.0); HEMOGLOBIN 7.7 g/dL (13.6-17.8); MEAN CORPUS HGB CONC 33.8 g/dL (32.0-36.0); MEAN CORPUSCULAR HEMOGLOB 30.9 pg (26.0-34.0); MEAN CORPUSCULAR VOLUME 91.6 fL (80-100); MEAN PLATELET VOLUME 8.7 fL (9.2-13.0); RBC DISTRIBUTION WIDTH 17.8 % (12.0-16.0); RED CELL COUNT 2.49 10/6/uL (4.7-6.1)
[2017-01-10 05:59] LABS: MANUAL DIFF YES %; PLATELET COUNT 9 10/3/uL (150-400); WHITE BLOOD CELLS 0.2 10/3/uL (4.5-10.5)
[2017-01-10 06:20] LABS: BUN (BLOOD UREA NITROGEN) 12 MG/DL (6-23); CALCIUM, SERUM 7.7 MG/DL (8.5-10.4); CHLORIDE, SERUM 105 MMOL/L (96-112); CO2 (CARBON DIOXIDE) 22 MMOL/L (24-34); CREATININE 0.81 MG/DL (0.70-1.30); DIRECT BILIRUBIN 0.4 MG/DL (0.0-0.4); GFR AFRICAN AMERICAN 106 ML/MIN (>=60); GFR NON AFRICAN AMERICAN 91 ML/MIN (>=60); GLUCOSE, SERUM 90 MG/DL (60-99); POTASSIUM, SERUM 3.8 MMOL/L (3.5-5.3); SGOT(AST) 32 U/L (5-40); SGPT(ALT) 72 U/L (5-65); SODIUM, SERUM 139 MMOL/L (135-148)
[2017-01-10 06:28] LABS: ALBUMIN 2.6 G/DL (3.5-5.0); ALKALINE PHOSPHATASE 42 U/L (45-117); INDIRECT BILIRUBIN(NOT ORDER) 1.3 MG/DL (0.1-0.9); TOTAL BILIRUBIN 1.7 MG/DL (0-1.2); TOTAL PROTEIN 5.5 G/DL (6.0-8.5)
[2017-01-10 06:44] LABS: ANISOCYTOSIS 1+ (5-10/OIF) (0-5/OIF); LYMPHOCYTES 100 %; POLYCHROMASIA 1+ (2-5/OIF) (0-1/OIF); TOTAL NUCLEATED CELLS 100
[2017-01-11 04:07] LABS: HEMATOCRIT 23.9 % (40.0-51.0); HEMOGLOBIN 8.2 g/dL (13.6-17.8); MEAN CORPUS HGB CONC 34.3 g/dL (32.0-36.0); MEAN CORPUSCULAR HEMOGLOB 31.2 pg (26.0-34.0); MEAN CORPUSCULAR VOLUME 90.9 fL (80-100); MEAN PLATELET VOLUME 9.8 fL (9.2-13.0); RBC DISTRIBUTION WIDTH 17.5 % (12.0-16.0); RED CELL COUNT 2.63 10/6/uL (4.7-6.1)
[2017-01-11 04:09] LABS: MANUAL DIFF YES %; PLATELET COUNT 24 10/3/uL (150-400); WHITE BLOOD CELLS 0.1 10/3/uL (4.5-10.5)
[2017-01-11 04:23] LABS: BUN (BLOOD UREA NITROGEN) 10 MG/DL (6-23); CALCIUM, SERUM 7.9 MG/DL (8.5-10.4); CHLORIDE, SERUM 105 MMOL/L (96-112); CO2 (CARBON DIOXIDE) 24 MMOL/L (24-34); CREATININE 0.85 MG/DL (0.70-1.30); GFR AFRICAN AMERICAN 104 ML/MIN (>=60); GFR NON AFRICAN AMERICAN 90 ML/MIN (>=60); POTASSIUM, SERUM 3.8 MMOL/L (3.5-5.3); SODIUM, SERUM 138 MMOL/L (135-148)
[2017-01-11 04:24] LABS: GLUCOSE, SERUM 109 MG/DL (60-99)
[2017-01-11 04:29] LABS: LYMPHOCYTES 100 %; TOTAL NUCLEATED CELLS 1
[2017-01-11 04:30] LABS: ANISOCYTOSIS 1+ (5-10/OIF) (0-5/OIF)
[2017-01-12 05:11] LABS: HEMOGLOBIN 7.4 g/dL (13.6-17.8); MEAN CORPUS HGB CONC 34.7 g/dL (32.0-36.0); MEAN CORPUSCULAR HEMOGLOB 31.1 pg (26.0-34.0); MEAN CORPUSCULAR VOLUME 89.5 fL (80-100); MEAN PLATELET VOLUME 9.4 fL (9.2-13.0); RED CELL COUNT 2.38 10/6/uL (4.7-6.1)
[2017-01-12 05:21] LABS: HEMATOCRIT 21.3 % (40.0-51.0); MANUAL DIFF NO %; PLATELET COUNT 8 10/3/uL (150-400)
[2017-01-12 05:25] LABS: ALBUMIN 2.3 G/DL (3.5-5.0); ALKALINE PHOSPHATASE 34 U/L (45-117); BUN (BLOOD UREA NITROGEN) 12 MG/DL (6-23); CALCIUM, SERUM 7.3 MG/DL (8.5-10.4); CHLORIDE, SERUM 101 MMOL/L (96-112); CO2 (CARBON DIOXIDE) 21 MMOL/L (24-34); CREATININE 0.88 MG/DL (0.70-1.30); GFR AFRICAN AMERICAN 102 ML/MIN (>=60); GFR NON AFRICAN AMERICAN 88 ML/MIN (>=60); GLUCOSE, SERUM 115 MG/DL (60-99); POTASSIUM, SERUM 3.7 MMOL/L (3.5-5.3); SGOT(AST) 19 U/L (5-40); SGPT(ALT) 46 U/L (5-65); SODIUM, SERUM 134 MMOL/L (135-148); TOTAL PROTEIN 5.2 G/DL (6.0-8.5)
[2017-01-12 05:29] LABS: DIRECT BILIRUBIN 0.8 MG/DL (0.0-0.4); INDIRECT BILIRUBIN(NOT ORDER) 1.5 MG/DL (0.1-0.9); TOTAL BILIRUBIN 2.3 MG/DL (0-1.2)
[2017-01-12 06:09] LABS: ANISOCYTOSIS 1+ (5-10/OIF) (0-5/OIF); HELMET CELLS FEW (3-10/OIF); SCHISTOCYTES OCC (0-2/OIF)
[2017-01-12 06:10] LABS: ROULEAUX FORMATION 1+
[2017-01-12 14:38] LABS: ASCORBIC ACID (UR NOT ORDER) NEG (NEG); BILIRUBIN, URINE NEGATIVE (NEG); KETONE, URINE NEGATIVE (NEG); LEUKOCYTE ESTERASE(NOT OR NEG (NEG); WBC (NOT ORDERED) (RFLEX) < 1 (0-5)
[2017-01-13 08:44] LABS: CALCIUM, SERUM 7.3 MG/DL (8.5-10.4); CHLORIDE, SERUM 101 MMOL/L (96-112); CO2 (CARBON DIOXIDE) 24 MMOL/L (24-34); GFR AFRICAN AMERICAN 80 ML/MIN (>=60); GFR NON AFRICAN AMERICAN 69 ML/MIN (>=60); GLUCOSE, SERUM 119 MG/DL (60-99); POTASSIUM, SERUM 3.8 MMOL/L (3.5-5.3); SODIUM, SERUM 136 MMOL/L (135-148)
[2017-01-13 08:45] LABS: BUN (BLOOD UREA NITROGEN) 18 MG/DL (6-23)
[2017-01-13 09:01] LABS: HEMATOCRIT 21.8 % (40.0-51.0); HEMOGLOBIN 7.5 g/dL (13.6-17.8); MEAN CORPUS HGB CONC 34.4 g/dL (32.0-36.0); MEAN CORPUSCULAR HEMOGLOB 30.4 pg (26.0-34.0); MEAN CORPUSCULAR VOLUME 88.3 fL (80-100); MEAN PLATELET VOLUME 10.5 fL (9.2-13.0); RBC DISTRIBUTION WIDTH 16.8 % (12.0-16.0); RED CELL COUNT 2.47 10/6/uL (4.7-6.1)
[2017-01-13 09:04] LABS: PLATELET COUNT 18 10/3/uL (150-400); WHITE BLOOD CELLS 0.1 10/3/uL (4.5-10.5)
[2017-01-13 09:05] LABS: MANUAL DIFF YES %
[2017-01-13 09:20] LABS: LYMPHOCYTES 100 %; RBC MORPHOLOGY NORM (NORMAL); TOTAL NUCLEATED CELLS 1
[2017-01-14 05:20] LABS: HEMOGLOBIN 7.6 g/dL (13.6-17.8); MEAN CORPUS HGB CONC 34.5 g/dL (32.0-36.0); MEAN CORPUSCULAR HEMOGLOB 29.8 pg (26.0-34.0); MEAN CORPUSCULAR VOLUME 86.3 fL (80-100); MEAN PLATELET VOLUME 8.2 fL (9.2-13.0); RBC DISTRIBUTION WIDTH 16.6 % (12.0-16.0); RED CELL COUNT 2.55 10/6/uL (4.7-6.1)
[2017-01-14 05:28] LABS: PLATELET COUNT 7 10/3/uL (150-400)
[2017-01-14 05:29] LABS: MANUAL DIFF YES %
[2017-01-14 05:31] LABS: BUN (BLOOD UREA NITROGEN) 16 MG/DL (6-23); CHLORIDE, SERUM 101 MMOL/L (96-112); CO2 (CARBON DIOXIDE) 24 MMOL/L (24-34); CREATININE 1.06 MG/DL (0.70-1.30); GFR AFRICAN AMERICAN 83 ML/MIN (>=60); GFR NON AFRICAN AMERICAN 72 ML/MIN (>=60); GLUCOSE, SERUM 132 MG/DL (60-99); POTASSIUM, SERUM 3.8 MMOL/L (3.5-5.3); SODIUM, SERUM 135 MMOL/L (135-148)
[2017-01-14 05:36] LABS: CALCIUM, SERUM 6.6 MG/DL (8.5-10.4)
[2017-01-14 06:12] LABS: LYMPHOCYTES 100 %; RBC MORPHOLOGY NORM (NORMAL); TOTAL NUCLEATED CELLS 100
[2017-01-15 06:39] LABS: HEMATOCRIT 22.9 % (40.0-51.0); MEAN CORPUS HGB CONC 34.9 g/dL (32.0-36.0); MEAN CORPUSCULAR HEMOGLOB 30.4 pg (26.0-34.0); MEAN CORPUSCULAR VOLUME 87.1 fL (80-100); MEAN PLATELET VOLUME 12.1 fL (9.2-13.0); RBC DISTRIBUTION WIDTH 16.4 % (12.0-16.0); RED CELL COUNT 2.63 10/6/uL (4.7-6.1)
[2017-01-15 06:45] LABS: PLATELET COUNT 21 10/3/uL (150-400)
[2017-01-15 06:46] LABS: MANUAL DIFF YES %
[2017-01-15 07:19] LABS: LYMPHOCYTES 100 %; RBC MORPHOLOGY NORM (NORMAL); TOTAL NUCLEATED CELLS 48
[2017-01-15 07:25] LABS: BUN (BLOOD UREA NITROGEN) 19 MG/DL (6-23); CALCIUM, SERUM 6.6 MG/DL (8.5-10.4); CHLORIDE, SERUM 98 MMOL/L (96-112); CO2 (CARBON DIOXIDE) 22 MMOL/L (24-34); CREATININE 1.16 MG/DL (0.70-1.30); GFR AFRICAN AMERICAN 75 ML/MIN (>=60); GFR NON AFRICAN AMERICAN 64 ML/MIN (>=60); GLUCOSE, SERUM 135 MG/DL (60-99); SODIUM, SERUM 133 MMOL/L (135-148)
[2017-01-16 05:10] LABS: HEMATOCRIT 23.2 % (40.0-51.0); HEMOGLOBIN 8.2 g/dL (13.6-17.8); MEAN CORPUS HGB CONC 35.3 g/dL (32.0-36.0); MEAN CORPUSCULAR HEMOGLOB 30.6 pg (26.0-34.0); MEAN CORPUSCULAR VOLUME 86.6 fL (80-100); RBC DISTRIBUTION WIDTH 16.4 % (12.0-16.0); RED CELL COUNT 2.68 10/6/uL (4.7-6.1)
[2017-01-16 05:18] LABS: MANUAL DIFF YES %; PLATELET COUNT 10 10/3/uL (150-400); WHITE BLOOD CELLS 0.1 10/3/uL (4.5-10.5)
[2017-01-16 05:33] LABS: CHLORIDE, SERUM 99 MMOL/L (96-112); CO2 (CARBON DIOXIDE) 21 MMOL/L (24-34); GLUCOSE, SERUM 136 MG/DL (60-99); POTASSIUM, SERUM 3.5 MMOL/L (3.5-5.3); SODIUM, SERUM 134 MMOL/L (135-148)
[2017-01-16 05:42] LABS: BUN (BLOOD UREA NITROGEN) 26 MG/DL (6-23); CALCIUM, SERUM 6.7 MG/DL (8.5-10.4); GFR AFRICAN AMERICAN 47 ML/MIN (>=60); GFR NON AFRICAN AMERICAN 41 ML/MIN (>=60)
[2017-01-16 06:31] LABS: INTERNATIONAL NORMAL RATI 1.6 UNITS (-); PARTIAL THROMBO TIME 42.2 SEC (22.5-37.2)
[2017-01-16 06:37] LABS: PROTIME (NOT ORD) 18.7 SEC (12.0-14.5)
[2017-01-16 07:08] LABS: ANISOCYTOSIS 1+ (5-10/OIF) (0-5/OIF); LYMPHOCYTES 100 %; TOTAL NUCLEATED CELLS 1
[2017-01-16 07:39] LABS: RETICULOCYTE COUNT 0.2 % (0.5-2.9); RETICULOCYTE COUNT ABSOLUTE 4.1 10/3/uL (20.2-119.8)
[2017-01-16 10:06] LABS: ALBUMIN 1.8 G/DL (3.5-5.0); DIRECT BILIRUBIN 1.8 MG/DL (0.0-0.4); INDIRECT BILIRUBIN(NOT ORDER) 1.3 MG/DL (0.1-0.9); TOTAL BILIRUBIN 3.1 MG/DL (0-1.2); TOTAL PROTEIN 5.2 G/DL (6.0-8.5)
[2017-01-16 18:41] LABS: CREATININE (RANDOM URINE) 84.4 MG/DL; CREATININE, URINE 84.4 MG/DL; MICROALBUMIN, RANDOM URINE 16.6 MG/DL
[2017-01-16 23:03] LABS: ALLENS TEST Pos; BE (BASE EXCESS) -0.2 MEQ/L (0 +/- 2.5); CARBOXYHEMOGLOBIN 1.1 % (0-3); DEVICE NC; HEMOBLOGIN CONTENT 7.2 G/DL (14-18); INSTRUMENT SERIAL # 8083; METHEMOGLOBIN 0.5 % (0-3); O2 CONTENT 9.7 VOL% (18-24); OPERATOR ID 35190; PCO2 (CO2 TENSION) 26 MMHG (35-45); PO2 (O2 TENSION) 82 MMHG (79-93); SAMPLE Arterial; pH 7.55 (7.37-7.43)
[2017-01-17 07:21] LABS: MEAN CORPUS HGB CONC 34.7 g/dL (32.0-36.0); MEAN CORPUSCULAR HEMOGLOB 29.5 pg (26.0-34.0); MEAN PLATELET VOLUME 9.7 fL (9.2-13.0); RBC DISTRIBUTION WIDTH 16.7 % (12.0-16.0); RED CELL COUNT 2.27 10/6/uL (4.7-6.1)
[2017-01-17 07:25] LABS: HEMATOCRIT 19.3 % (40.0-51.0); HEMOGLOBIN 6.7 g/dL (13.6-17.8); PLATELET COUNT 9 10/3/uL (150-400); WHITE BLOOD CELLS 0.1 10/3/uL (4.5-10.5)
[2017-01-17 07:27] LABS: MANUAL DIFF YES %
[2017-01-17 07:30] LABS: A/G RATIO 0.4 (0.7-1.9); ALBUMIN 1.4 G/DL (3.5-5.0); ALKALINE PHOSPHATASE 22 U/L (45-117); BUN (BLOOD UREA NITROGEN) 37 MG/DL (6-23); CALCIUM, SERUM 6.3 MG/DL (8.5-10.4); CHLORIDE, SERUM 102 MMOL/L (96-112); CO2 (CARBON DIOXIDE) 23 MMOL/L (24-34); CREATININE 1.91 MG/DL (0.70-1.30); GFR AFRICAN AMERICAN 41 ML/MIN (>=60); GFR NON AFRICAN AMERICAN 35 ML/MIN (>=60); GLOBULIN 3.2 G/DL (2.5-4.1); GLUCOSE, SERUM 154 MG/DL (60-99); PHOSPHORUS, SERUM 2.2 MG/DL (2.5-4.5); POTASSIUM, SERUM 3.4 MMOL/L (3.5-5.3); SGOT(AST) 106 U/L (5-40); SGPT(ALT) 78 U/L (5-65); SODIUM, SERUM 139 MMOL/L (135-148); TOTAL BILIRUBIN 2.6 MG/DL (0-1.2); TOTAL PROTEIN 4.6 G/DL (6.0-8.5); TROPONIN I 0.37 NG/ML (<0.05); ULTRASENSITIVE TSH 0.375 MCIU/ML (0.358-3.740)
[2017-01-17 07:56] LABS: FIBRINOGEN 330 MG/DL (230-462); INTERNATIONAL NORMAL RATI 1.9 UNITS (-); PARTIAL THROMBO TIME 44.8 SEC (22.5-37.2); PROTIME (NOT ORD) 21.4 SEC (12.0-14.5)
[2017-01-17 08:03] LABS: PROCALCITONIN 65.84 ng/mL (<0.5)
[2017-01-17 08:37] LABS: MONOCYTES 100 %; TOTAL NUCLEATED CELLS 1
[2017-01-17 08:38] LABS: BURR CELLS 1+ (3-10/OIF) (0-2/OIF); HELMET CELLS OCC (0-2/OIF); POIKILOCYTOSIS 1+ (5-10/OIF) (0-5/OIF); TEARDROP SHAPED RBCS OCC (0-2/OIF)
[2017-01-17 08:55] LABS: ALLENS TEST Pos; BE (BASE EXCESS) -1.7 MEQ/L (0 +/- 2.5); BIPAP 15/5 cm.H2O; CARBOXYHEMOGLOBIN 0.6 % (0-3); HCO3 (ACTUAL BICARBONATE) 20.3 MEQ/L (23-27); HEMOBLOGIN CONTENT 7.4 G/DL (14-18); INSTRUMENT SERIAL # 8083; METHEMOGLOBIN 0.4 % (0-3); O2 CONTENT 10.5 VOL% (18-24); PCO2 (CO2 TENSION) 24 MMHG (35-45); PO2 (O2 TENSION) 135 MMHG (79-93); SAMPLE Arterial; pH 7.54 (7.37-7.43)
[2017-01-17 23:54] LABS: HEMOGLOBIN 6.4 g/dL (13.6-17.8); MEAN CORPUS HGB CONC 35.2 g/dL (32.0-36.0); MEAN CORPUSCULAR HEMOGLOB 29.4 pg (26.0-34.0); MEAN CORPUSCULAR VOLUME 83.5 fL (80-100); MEAN PLATELET VOLUME 9.1 fL (9.2-13.0); RBC DISTRIBUTION WIDTH 16.4 % (12.0-16.0); RED CELL COUNT 2.18 10/6/uL (4.7-6.1)
[2017-01-17 23:55] LABS: HEMATOCRIT 18.2 % (40.0-51.0); MANUAL DIFF YES %; PLATELET COUNT 20 10/3/uL (150-400)
[2017-01-18 00:01] LABS: INTERNATIONAL NORMAL RATI 1.9 UNITS (-); PROTIME (NOT ORD) 21.4 SEC (12.0-14.5)
[2017-01-18 00:02] LABS: PARTIAL THROMBO TIME 41.8 SEC (22.5-37.2)
[2017-01-18 00:10] LABS: CHLORIDE, SERUM 102 MMOL/L (96-112); CO2 (CARBON DIOXIDE) 22 MMOL/L (24-34); DIRECT BILIRUBIN 1.7 MG/DL (0.0-0.4); INDIRECT BILIRUBIN(NOT ORDER) 0.9 MG/DL (0.1-0.9); POTASSIUM, SERUM 3.4 MMOL/L (3.5-5.3); SGOT(AST) 133 U/L (5-40); SGPT(ALT) 89 U/L (5-65); SODIUM, SERUM 138 MMOL/L (135-148); TOTAL BILIRUBIN 2.6 MG/DL (0-1.2); TOTAL PROTEIN 4.8 G/DL (6.0-8.5)
[2017-01-18 00:17] LABS: BUN (BLOOD UREA NITROGEN) 53 MG/DL (6-23); CREATININE 2.87 MG/DL (0.70-1.30); GFR AFRICAN AMERICAN 25 ML/MIN (>=60); GFR NON AFRICAN AMERICAN 22 ML/MIN (>=60); GLUCOSE, SERUM 185 MG/DL (60-99)
[2017-01-18 00:18] LABS: ALBUMIN 1.7 G/DL (3.5-5.0); ALKALINE PHOSPHATASE 27 U/L (45-117); CALCIUM, SERUM 6.1 MG/DL (8.5-10.4); PHOSPHORUS, SERUM 5.2 MG/DL (2.5-4.5)
[2017-01-18 00:26] LABS: LYMPHOCYTES 100 %; TOTAL NUCLEATED CELLS 1
[2017-01-18 00:27] LABS: RBC MORPHOLOGY NORM (NORMAL)
[2017-01-18 04:18] LABS: ALLENS TEST Pos; BE (BASE EXCESS) -4.7 MEQ/L (0 +/- 2.5); CARBOXYHEMOGLOBIN 0.3 % (0-3); HCO3 (ACTUAL BICARBONATE) 19.7 MEQ/L (23-27); HEMOBLOGIN CONTENT 8.1 G/DL (14-18); INSTRUMENT SERIAL # 35151; METHEMOGLOBIN 0.9 % (0-3); MODE CMV; O2 CONTENT 11.1 VOL% (18-24); OPERATOR ID 31061; PCO2 (CO2 TENSION) 34 MMHG (35-45); PO2 (O2 TENSION) 100 MMHG (79-93); SAMPLE Arterial; TIDAL VOLUME 500 ML; pH 7.39 (7.37-7.43)
[2017-01-18 05:11] LABS: HEMOGLOBIN 7.4 g/dL (13.6-17.8); MEAN CORPUS HGB CONC 35.9 g/dL (32.0-36.0); MEAN CORPUSCULAR HEMOGLOB 30.8 pg (26.0-34.0); MEAN CORPUSCULAR VOLUME 85.8 fL (80-100); MEAN PLATELET VOLUME 9.3 fL (9.2-13.0); RBC DISTRIBUTION WIDTH 16.2 % (12.0-16.0)
[2017-01-18 05:15] LABS: HEMATOCRIT 20.6 % (40.0-51.0); MANUAL DIFF YES %; PLATELET COUNT 18 10/3/uL (150-400)
[2017-01-18 05:30] LABS: A/G RATIO 0.5 (0.7-1.9); ALBUMIN 1.6 G/DL (3.5-5.0); ALKALINE PHOSPHATASE 26 U/L (45-117); BUN (BLOOD UREA NITROGEN) 55 MG/DL (6-23); CHLORIDE, SERUM 100 MMOL/L (96-112); CO2 (CARBON DIOXIDE) 21 MMOL/L (24-34); CREATININE 3.13 MG/DL (0.70-1.30); GFR AFRICAN AMERICAN 22 ML/MIN (>=60); GFR NON AFRICAN AMERICAN 19 ML/MIN (>=60); GLOBULIN 3.1 G/DL (2.5-4.1); GLUCOSE, SERUM 171 MG/DL (60-99); PHOSPHORUS, SERUM 4.7 MG/DL (2.5-4.5); POTASSIUM, SERUM 3.3 MMOL/L (3.5-5.3); SGOT(AST) 157 U/L (5-40); SGPT(ALT) 101 U/L (5-65); SODIUM, SERUM 138 MMOL/L (135-148); TOTAL BILIRUBIN 2.8 MG/DL (0-1.2); TOTAL PROTEIN 4.7 G/DL (6.0-8.5)
[2017-01-18 05:36] LABS: CALCIUM, SERUM 6.2 MG/DL (8.5-10.4)
[2017-01-18 05:49] LABS: BURR CELLS 1+ (3-10/OIF) (0-2/OIF); LYMPHOCYTES 100 %; PLATELET ESTIMATE DEC (ADEQUATE); TOTAL NUCLEATED CELLS 100
[2017-01-18 05:50] LABS: POIKILOCYTOSIS 1+ (5-10/OIF) (0-5/OIF)
[2017-01-18 06:11] LABS: PROCALCITONIN 143.29 ng/mL (<0.5)
[2017-01-18 09:19] LABS: HEMOGLOBIN 8.2 g/dL (13.6-17.8); MANUAL DIFF YES %; MEAN CORPUS HGB CONC 35.7 g/dL (32.0-36.0); MEAN CORPUSCULAR HEMOGLOB 30.6 pg (26.0-34.0); MEAN CORPUSCULAR VOLUME 85.8 fL (80-100); MEAN PLATELET VOLUME 10.2 fL (9.2-13.0); PLATELET COUNT 15 10/3/uL (150-400); RBC DISTRIBUTION WIDTH 16.3 % (12.0-16.0); RED CELL COUNT 2.68 10/6/uL (4.7-6.1)
[2017-01-18 09:27] LABS: FIBRINOGEN 346 MG/DL (230-462); PROTIME (NOT ORD) 22.1 SEC (12.0-14.5)
[2017-01-18 09:38] LABS: A/G RATIO 0.5 (0.7-1.9); ALBUMIN 1.8 G/DL (3.5-5.0); ALKALINE PHOSPHATASE 29 U/L (45-117); CHLORIDE, SERUM 103 MMOL/L (96-112); CO2 (CARBON DIOXIDE) 20 MMOL/L (24-34); CREATININE 3.34 MG/DL (0.70-1.30); GFR AFRICAN AMERICAN 21 ML/MIN (>=60); GFR NON AFRICAN AMERICAN 18 ML/MIN (>=60); GLOBULIN 3.5 G/DL (2.5-4.1); POTASSIUM, SERUM 3.4 MMOL/L (3.5-5.3); SGOT(AST) 202 U/L (5-40); SGPT(ALT) 116 U/L (5-65); SODIUM, SERUM 138 MMOL/L (135-148); TOTAL BILIRUBIN 2.8 MG/DL (0-1.2); TOTAL PROTEIN 5.3 G/DL (6.0-8.5)
[2017-01-18 09:39] LABS: BUN (BLOOD UREA NITROGEN) 60 MG/DL (6-23); GLUCOSE, SERUM 136 MG/DL (60-99)
[2017-01-18 09:40] LABS: CALCIUM, SERUM 6.5 MG/DL (8.5-10.4)
[2017-01-18 09:52] LABS: LYMPHOCYTES 100 %; RBC MORPHOLOGY NORM (NORMAL); TOTAL NUCLEATED CELLS 100
[2017-01-18 12:06] LABS: ALLENS TEST Pos; BE (BASE EXCESS) -5.4 MEQ/L (0 +/- 2.5); CARBOXYHEMOGLOBIN 0.3 % (0-3); HCO3 (ACTUAL BICARBONATE) 19.3 MEQ/L (23-27); INSTRUMENT SERIAL # 35151; MODE CMV; O2 CONTENT 10.9 VOL% (18-24); OPERATOR ID 14472; PCO2 (CO2 TENSION) 34 MMHG (35-45); PO2 (O2 TENSION) 98 MMHG (79-93); SAMPLE Arterial; TIDAL VOLUME 500 ML; pH 7.37 (7.37-7.43)
[2017-01-18 17:28] LABS: HEMOGLOBIN 7.4 g/dL (13.6-17.8)
[2017-01-18 17:29] LABS: HEMATOCRIT 20.5 % (40.0-51.0)
[2017-01-18 20:23] LABS: HEMOGLOBIN 7.2 g/dL (13.6-17.8); MEAN CORPUS HGB CONC 35.5 g/dL (32.0-36.0); MEAN CORPUSCULAR HEMOGLOB 30.4 pg (26.0-34.0); MEAN CORPUSCULAR VOLUME 85.7 fL (80-100); MEAN PLATELET VOLUME 9.5 fL (9.2-13.0); RBC DISTRIBUTION WIDTH 16.5 % (12.0-16.0); RED CELL COUNT 2.37 10/6/uL (4.7-6.1)
[2017-01-18 20:28] LABS: HEMATOCRIT 20.3 % (40.0-51.0); PLATELET COUNT 14 10/3/uL (150-400)
[2017-01-18 20:30] LABS: INTERNATIONAL NORMAL RATI 1.7 UNITS (-); MANUAL DIFF YES %; PARTIAL THROMBO TIME 32.2 SEC (22.5-37.2); PROTIME (NOT ORD) 19.8 SEC (12.0-14.5)
[2017-01-18 20:38] LABS: ALBUMIN 1.6 G/DL (3.5-5.0); ALKALINE PHOSPHATASE 32 U/L (45-117); CHLORIDE, SERUM 106 MMOL/L (96-112); CO2 (CARBON DIOXIDE) 20 MMOL/L (24-34); INDIRECT BILIRUBIN(NOT ORDER) 0.8 MG/DL (0.1-0.9); POTASSIUM, SERUM 3.3 MMOL/L (3.5-5.3); SGOT(AST) 203 U/L (5-40); SGPT(ALT) 114 U/L (5-65); SODIUM, SERUM 140 MMOL/L (135-148); TOTAL BILIRUBIN 2.7 MG/DL (0-1.2); TOTAL PROTEIN 4.9 G/DL (6.0-8.5)
[2017-01-18 20:39] LABS: BUN (BLOOD UREA NITROGEN) 40 MG/DL (6-23); CALCIUM, SERUM 6.2 MG/DL (8.5-10.4); CREATININE 2.34 MG/DL (0.70-1.30); DIRECT BILIRUBIN 1.9 MG/DL (0.0-0.4); GFR AFRICAN AMERICAN 32 ML/MIN (>=60); GFR NON AFRICAN AMERICAN 28 ML/MIN (>=60); GLUCOSE, SERUM 99 MG/DL (60-99); PHOSPHORUS, SERUM 2.6 MG/DL (2.5-4.5)
[2017-01-18 21:55] LABS: PROCALCITONIN 76.64 ng/mL (<0.5)
[2017-01-18 22:10] LABS: MONOCYTES 20 %; SEGMENTED NEUTROPHIL (0) 20 %; TOTAL NUCLEATED CELLS 5
[2017-01-18 22:12] LABS: BURR CELLS 1+ (3-10/OIF) (0-2/OIF)
[2017-01-18 22:13] LABS: LYMPHOCYTES 60 %
[2017-01-19 02:27] LABS: HEMOGLOBIN 7.3 g/dL (13.6-17.8); MEAN CORPUS HGB CONC 35.4 g/dL (32.0-36.0); MEAN CORPUSCULAR VOLUME 84.8 fL (80-100); MEAN PLATELET VOLUME 9.4 fL (9.2-13.0); RBC DISTRIBUTION WIDTH 16.6 % (12.0-16.0); RED CELL COUNT 2.43 10/6/uL (4.7-6.1)
[2017-01-19 02:29] LABS: HEMATOCRIT 20.6 % (40.0-51.0)
[2017-01-19 02:30] LABS: MANUAL DIFF YES %; PLATELET COUNT 15 10/3/uL (150-400)
[2017-01-19 02:37] LABS: INTERNATIONAL NORMAL RATI 1.7 UNITS (-); PROTIME (NOT ORD) 20.1 SEC (12.0-14.5)
[2017-01-19 02:38] LABS: FIBRINOGEN 353 MG/DL (230-462); PARTIAL THROMBO TIME 39.6 SEC (22.5-37.2)
[2017-01-19 02:44] LABS: A/G RATIO 0.5 (0.7-1.9); ALBUMIN 1.8 G/DL (3.5-5.0); ALKALINE PHOSPHATASE 37 U/L (45-117); CALCIUM, SERUM 7.1 MG/DL (8.5-10.4); CHLORIDE, SERUM 108 MMOL/L (96-112); CO2 (CARBON DIOXIDE) 22 MMOL/L (24-34); CREATININE 2.06 MG/DL (0.70-1.30); GFR AFRICAN AMERICAN 37 ML/MIN (>=60); GFR NON AFRICAN AMERICAN 32 ML/MIN (>=60); GLOBULIN 3.4 G/DL (2.5-4.1); GLUCOSE, SERUM 94 MG/DL (60-99); PHOSPHORUS, SERUM 2.3 MG/DL (2.5-4.5); POTASSIUM, SERUM 3.8 MMOL/L (3.5-5.3); SGOT(AST) 237 U/L (5-40); SGPT(ALT) 126 U/L (5-65); SODIUM, SERUM 143 MMOL/L (135-148); TOTAL BILIRUBIN 2.7 MG/DL (0-1.2); TOTAL PROTEIN 5.2 G/DL (6.0-8.5)
[2017-01-19 02:46] LABS: BUN (BLOOD UREA NITROGEN) 33 MG/DL (6-23)
[2017-01-19 03:22] LABS: BAND NEUTROPHILS 10 %; EOSINOPHILS 10 %; LYMPHOCYTES 50 %; MONOCYTES 30 %; TOTAL NUCLEATED CELLS 100
[2017-01-19 03:23] LABS: ANISOCYTOSIS 1+ (5-10/OIF) (0-5/OIF); TEARDROP SHAPED RBCS OCC (0-2/OIF)
[2017-01-19 04:17] LABS: BE (BASE EXCESS) -4.8 MEQ/L (0 +/- 2.5); CARBOXYHEMOGLOBIN 0.3 % (0-3); HCO3 (ACTUAL BICARBONATE) 19.6 MEQ/L (23-27); INSTRUMENT SERIAL # 35151; METHEMOGLOBIN 1.2 % (0-3); O2 CONTENT 5.5 VOL% (18-24); PCO2 (CO2 TENSION) 32 MMHG (35-45); PO2 (O2 TENSION) 84 MMHG (79-93); pH 7.41 (7.37-7.43)
[2017-01-19 04:18] LABS: ALLENS TEST Pos; MODE CMV; OPERATOR ID 30013; SAMPLE Arterial; TIDAL VOLUME 500 ML
[2017-01-19 09:01] LABS: MEAN CORPUS HGB CONC 34.9 g/dL (32.0-36.0); MEAN CORPUSCULAR HEMOGLOB 29.6 pg (26.0-34.0); MEAN PLATELET VOLUME 9.6 fL (9.2-13.0); RBC DISTRIBUTION WIDTH 16.8 % (12.0-16.0); RED CELL COUNT 2.26 10/6/uL (4.7-6.1)
[2017-01-19 09:03] LABS: HEMOGLOBIN 6.7 g/dL (13.6-17.8)
[2017-01-19 09:04] LABS: HEMATOCRIT 19.2 % (40.0-51.0); MANUAL DIFF YES %; PLATELET COUNT 29 10/3/uL (150-400)
[2017-01-19 09:12] LABS: BUN (BLOOD UREA NITROGEN) 27 MG/DL (6-23); CALCIUM, SERUM 6.8 MG/DL (8.5-10.4); CHLORIDE, SERUM 105 MMOL/L (96-112); CO2 (CARBON DIOXIDE) 24 MMOL/L (24-34); CREATININE 1.67 MG/DL (0.70-1.30); GFR AFRICAN AMERICAN 48 ML/MIN (>=60); GFR NON AFRICAN AMERICAN 41 ML/MIN (>=60); GLUCOSE, SERUM 89 MG/DL (60-99); POTASSIUM, SERUM 3.9 MMOL/L (3.5-5.3); SODIUM, SERUM 141 MMOL/L (135-148)
[2017-01-19 09:20] LABS: INTERNATIONAL NORMAL RATI 1.8 UNITS (-); PROTIME (NOT ORD) 20.5 SEC (12.0-14.5)
[2017-01-19 09:35] LABS: MONOCYTES 100 %; TOTAL NUCLEATED CELLS 1
[2017-01-19 09:36] LABS: TEARDROP SHAPED RBCS FEW (3-10/OIF)
[2017-01-19 09:38] LABS: HELMET CELLS OCC (0-2/OIF)
[2017-01-19 14:14] LABS: MEAN CORPUSCULAR HEMOGLOB 29.9 pg (26.0-34.0); MEAN CORPUSCULAR VOLUME 85.4 fL (80-100); MEAN PLATELET VOLUME 9.8 fL (9.2-13.0); RBC DISTRIBUTION WIDTH 16.5 % (12.0-16.0)
[2017-01-19 14:17] LABS: HEMOGLOBIN 8.4 g/dL (13.6-17.8); MANUAL DIFF YES %; PLATELET COUNT 19 10/3/uL (150-400); RED CELL COUNT 2.81 10/6/uL (4.7-6.1); WHITE BLOOD CELLS 0.1 10/3/uL (4.5-10.5)
[2017-01-19 14:26] LABS: BUN (BLOOD UREA NITROGEN) 24 MG/DL (6-23); CHLORIDE, SERUM 107 MMOL/L (96-112); CO2 (CARBON DIOXIDE) 22 MMOL/L (24-34); CREATININE 1.67 MG/DL (0.70-1.30); GFR AFRICAN AMERICAN 48 ML/MIN (>=60); GFR NON AFRICAN AMERICAN 41 ML/MIN (>=60); GLUCOSE, SERUM 89 MG/DL (60-99); PHOSPHORUS, SERUM 2.2 MG/DL (2.5-4.5); POTASSIUM, SERUM 4.1 MMOL/L (3.5-5.3); SODIUM, SERUM 141 MMOL/L (135-148)
[2017-01-19 14:27] LABS: CALCIUM, SERUM 6.8 MG/DL (8.5-10.4)
[2017-01-19 14:43] LABS: LYMPHOCYTES 86 %; LYMPHOCYTES ABSOLUTE (CALC) 0.09 10/3/uL (0.67-4.30); MONOCYTES 14 %; MONOCYTES ABSOLUTE (CALC) 0.01 10/3/uL (0.21-1.20); TOTAL NUCLEATED CELLS 7
[2017-01-19 14:44] LABS: TEARDROP SHAPED RBCS FEW (3-10/OIF)
[2017-01-19 20:31] LABS: HEMATOCRIT 24.7 % (40.0-51.0); HEMOGLOBIN 8.8 g/dL (13.6-17.8); MEAN CORPUS HGB CONC 35.6 g/dL (32.0-36.0); MEAN CORPUSCULAR HEMOGLOB 30.9 pg (26.0-34.0); MEAN CORPUSCULAR VOLUME 86.7 fL (80-100); MEAN PLATELET VOLUME 10.1 fL (9.2-13.0); RBC DISTRIBUTION WIDTH 16.3 % (12.0-16.0); RED CELL COUNT 2.85 10/6/uL (4.7-6.1)
[2017-01-19 20:32] LABS: MANUAL DIFF YES %; PLATELET COUNT 18 10/3/uL (150-400); WHITE BLOOD CELLS 0.1 10/3/uL (4.5-10.5)
[2017-01-19 20:37] LABS: INTERNATIONAL NORMAL RATI 1.6 UNITS (-); PARTIAL THROMBO TIME 34.9 SEC (22.5-37.2); PROTIME (NOT ORD) 18.7 SEC (12.0-14.5)
[2017-01-19 20:41] LABS: BUN (BLOOD UREA NITROGEN) 23 MG/DL (6-23); CALCIUM, SERUM 7.2 MG/DL (8.5-10.4); CHLORIDE, SERUM 109 MMOL/L (96-112); CO2 (CARBON DIOXIDE) 22 MMOL/L (24-34); CREATININE 1.64 MG/DL (0.70-1.30); GFR AFRICAN AMERICAN 49 ML/MIN (>=60); GFR NON AFRICAN AMERICAN 42 ML/MIN (>=60); GLUCOSE, SERUM 73 MG/DL (60-99); PHOSPHORUS, SERUM 2.6 MG/DL (2.5-4.5); POTASSIUM, SERUM 4.1 MMOL/L (3.5-5.3); SODIUM, SERUM 142 MMOL/L (135-148)
[2017-01-19 21:13] LABS: LYMPHOCYTES 50 %; LYMPHOCYTES ABSOLUTE (CALC) 0.05 10/3/uL (0.67-4.30); MONOCYTES 40 %; MONOCYTES ABSOLUTE (CALC) 0.04 10/3/uL (0.21-1.20); NEUTROPHILS ABSOLUTE (CALC) 0.01 10/3/uL (2.02-8.40); TOTAL NUCLEATED CELLS 10
[2017-01-19 21:14] LABS: ANISOCYTOSIS 1+ (5-10/OIF) (0-5/OIF)
[2017-01-19 21:15] LABS: BAND NEUTROPHILS 10 %
[2017-01-19 23:56] LABS: ALLENS TEST Pos; BE (BASE EXCESS) -5.8 MEQ/L (0 +/- 2.5); CARBOXYHEMOGLOBIN 0.3 % (0-3); HCO3 (ACTUAL BICARBONATE) 18.8 MEQ/L (23-27); HEMOBLOGIN CONTENT 9.5 G/DL (14-18); INSTRUMENT SERIAL # 35151; METHEMOGLOBIN 0.7 % (0-3); MODE CMV; O2 CONTENT 12.3 VOL% (18-24); OPERATOR ID 13861; PCO2 (CO2 TENSION) 34 MMHG (35-45); PO2 (O2 TENSION) 70 MMHG (79-93); SAMPLE Arterial; TIDAL VOLUME 500 ML; pH 7.37 (7.37-7.43)
[2017-01-20 02:56] LABS: HEMOGLOBIN 8.6 g/dL (13.6-17.8); MANUAL DIFF YES %; MEAN CORPUS HGB CONC 35.8 g/dL (32.0-36.0); MEAN CORPUSCULAR HEMOGLOB 30.7 pg (26.0-34.0); MEAN CORPUSCULAR VOLUME 85.7 fL (80-100); MEAN PLATELET VOLUME 10.2 fL (9.2-13.0); PLATELET COUNT 13 10/3/uL (150-400); RBC DISTRIBUTION WIDTH 16.7 % (12.0-16.0); WHITE BLOOD CELLS 0.1 10/3/uL (4.5-10.5)
[2017-01-20 03:02] LABS: PARTIAL THROMBO TIME 29.8 SEC (22.5-37.2)
[2017-01-20 03:04] LABS: INTERNATIONAL NORMAL RATI 1.5 UNITS (-); PROTIME (NOT ORD) 18.2 SEC (12.0-14.5)
[2017-01-20 03:08] LABS: ALBUMIN 1.5 G/DL (3.5-5.0); BUN (BLOOD UREA NITROGEN) 20 MG/DL (6-23); CALCIUM, SERUM 7.3 MG/DL (8.5-10.4); CHLORIDE, SERUM 107 MMOL/L (96-112); CO2 (CARBON DIOXIDE) 22 MMOL/L (24-34); CREATININE 1.64 MG/DL (0.70-1.30); GFR AFRICAN AMERICAN 49 ML/MIN (>=60); GFR NON AFRICAN AMERICAN 42 ML/MIN (>=60); GLUCOSE, SERUM 71 MG/DL (60-99); PHOSPHORUS, SERUM 2.4 MG/DL (2.5-4.5); SODIUM, SERUM 142 MMOL/L (135-148)
[2017-01-20 03:14] LABS: LYMPHOCYTES 90 %; LYMPHOCYTES ABSOLUTE (CALC) 0.09 10/3/uL (0.67-4.30); NEUTROPHILS ABSOLUTE (CALC) 0.01 10/3/uL (2.02-8.40); PLATELET ESTIMATE DEC (ADEQUATE); SEGMENTED NEUTROPHIL (0) 10 %; TOTAL NUCLEATED CELLS 100
[2017-01-20 03:44] LABS: PROCALCITONIN 66.32 ng/mL (<0.5)
[2017-01-20 04:24] LABS: ALLENS TEST Pos; BE (BASE EXCESS) -6.8 MEQ/L (0 +/- 2.5); CARBOXYHEMOGLOBIN 0.6 % (0-3); HCO3 (ACTUAL BICARBONATE) 18.7 MEQ/L (23-27); INSTRUMENT SERIAL # 8083; METHEMOGLOBIN 0.2 % (0-3); MODE CMV; OPERATOR ID 14661; PCO2 (CO2 TENSION) 37 MMHG (35-45); PO2 (O2 TENSION) 81 MMHG (79-93); SAMPLE Arterial; TIDAL VOLUME 500 ML; pH 7.32 (7.37-7.43)
[2017-01-20 07:24] LABS: A/G RATIO 0.4 (0.7-1.9); ALKALINE PHOSPHATASE 42 U/L (45-117); GLOBULIN 3.5 G/DL (2.5-4.1); SGOT(AST) 165 U/L (5-40); SGPT(ALT) 118 U/L (5-65)
[2017-01-20 07:26] LABS: TOTAL BILIRUBIN 3.2 MG/DL (0-1.2)
[2017-01-20 08:54] LABS: HEMATOCRIT 24.8 % (40.0-51.0); HEMOGLOBIN 8.7 g/dL (13.6-17.8); MEAN CORPUS HGB CONC 35.1 g/dL (32.0-36.0); MEAN CORPUSCULAR HEMOGLOB 30.7 pg (26.0-34.0); MEAN CORPUSCULAR VOLUME 87.6 fL (80-100); RED CELL COUNT 2.83 10/6/uL (4.7-6.1)
[2017-01-20 08:56] LABS: MANUAL DIFF YES %; PLATELET COUNT 20 10/3/uL (150-400); WHITE BLOOD CELLS 0.1 10/3/uL (4.5-10.5)
[2017-01-20 09:01] LABS: BUN (BLOOD UREA NITROGEN) 18 MG/DL (6-23); CALCIUM, SERUM 7.2 MG/DL (8.5-10.4); CHLORIDE, SERUM 107 MMOL/L (96-112); CO2 (CARBON DIOXIDE) 21 MMOL/L (24-34); CREATININE 1.59 MG/DL (0.70-1.30); GFR AFRICAN AMERICAN 51 ML/MIN (>=60); GFR NON AFRICAN AMERICAN 44 ML/MIN (>=60); GLUCOSE, SERUM 60 MG/DL (60-99); POTASSIUM, SERUM 4.2 MMOL/L (3.5-5.3); SODIUM, SERUM 142 MMOL/L (135-148)
[2017-01-20 10:15] LABS: IMMATURE GRANS ABSOLUTE (CALC) 0.01 10/3/uL (0.0-0.11); LYMPHOCYTES 30 %; LYMPHOCYTES ABSOLUTE (CALC) 0.03 10/3/uL (0.67-4.30); METAMYELOCYTES 10 %; MONOCYTES 20 %; MONOCYTES ABSOLUTE (CALC) 0.02 10/3/uL (0.21-1.20); NEUTROPHILS ABSOLUTE (CALC) 0.04 10/3/uL (2.02-8.40); TOTAL NUCLEATED CELLS 10
[2017-01-20 10:16] LABS: ANISOCYTOSIS 1+ (5-10/OIF) (0-5/OIF); HYPOCHROMIA 1+ (3-10/OIF) (0-2/OIF); MICROCYTES 1+ (5-10/OIF) (0-5/OIF); SEGMENTED NEUTROPHIL (0) 40 %
[2017-01-20 14:17] LABS: HEMATOCRIT 26.3 % (40.0-51.0); HEMOGLOBIN 9.3 g/dL (13.6-17.8); MEAN CORPUS HGB CONC 35.4 g/dL (32.0-36.0); MEAN CORPUSCULAR VOLUME 87.7 fL (80-100); MEAN PLATELET VOLUME 10.7 fL (9.2-13.0); PLATELET COUNT 15 10/3/uL (150-400); RBC DISTRIBUTION WIDTH 17.2 % (12.0-16.0); WHITE BLOOD CELLS 0.2 10/3/uL (4.5-10.5)
[2017-01-20 14:18] LABS: MANUAL DIFF YES %
[2017-01-20 14:29] LABS: BUN (BLOOD UREA NITROGEN) 19 MG/DL (6-23); CALCIUM, SERUM 7.6 MG/DL (8.5-10.4); CHLORIDE, SERUM 107 MMOL/L (96-112); CO2 (CARBON DIOXIDE) 22 MMOL/L (24-34); CREATININE 1.71 MG/DL (0.70-1.30); GFR AFRICAN AMERICAN 47 ML/MIN (>=60); GFR NON AFRICAN AMERICAN 40 ML/MIN (>=60); GLUCOSE, SERUM 64 MG/DL (60-99); POTASSIUM, SERUM 4.2 MMOL/L (3.5-5.3); SODIUM, SERUM 141 MMOL/L (135-148)
[2017-01-20 14:49] LABS: BAND NEUTROPHILS 16 %; LYMPHOCYTES 4 %; LYMPHOCYTES ABSOLUTE (CALC) 0.01 10/3/uL (0.67-4.30); MONOCYTES 52 %; NEUTROPHILS ABSOLUTE (CALC) 0.09 10/3/uL (2.02-8.40); SEGMENTED NEUTROPHIL (0) 28 %; TOTAL NUCLEATED CELLS 100
[2017-01-20 14:50] LABS: ANISOCYTOSIS 1+ (5-10/OIF) (0-5/OIF); BURR CELLS 1+ (3-10/OIF) (0-2/OIF); MICROCYTES 1+ (5-10/OIF) (0-5/OIF); POIKILOCYTOSIS 1+ (5-10/OIF) (0-5/OIF)
[2017-01-20 20:13] LABS: HEMATOCRIT 25.9 % (40.0-51.0); MEAN CORPUS HGB CONC 34.7 g/dL (32.0-36.0); MEAN CORPUSCULAR HEMOGLOB 30.1 pg (26.0-34.0); MEAN CORPUSCULAR VOLUME 86.6 fL (80-100); RBC DISTRIBUTION WIDTH 17.4 % (12.0-16.0); RED CELL COUNT 2.99 10/6/uL (4.7-6.1)
[2017-01-20 20:14] LABS: MANUAL DIFF YES %; PLATELET COUNT 11 10/3/uL (150-400); WHITE BLOOD CELLS 0.3 10/3/uL (4.5-10.5)
[2017-01-20 20:26] LABS: BUN (BLOOD UREA NITROGEN) 19 MG/DL (6-23); CHLORIDE, SERUM 103 MMOL/L (96-112); CO2 (CARBON DIOXIDE) 22 MMOL/L (24-34); GFR AFRICAN AMERICAN 51 ML/MIN (>=60); GFR NON AFRICAN AMERICAN 44 ML/MIN (>=60); GLUCOSE, SERUM 56 MG/DL (60-99); POTASSIUM, SERUM 4.1 MMOL/L (3.5-5.3); SODIUM, SERUM 140 MMOL/L (135-148); VANCOMYCIN TROUGH 21.1 MCG/ML (10.0-20.0)
[2017-01-20 20:29] LABS: CALCIUM, SERUM 9.2 MG/DL (8.5-10.4)
[2017-01-20 22:18] LABS: ANISOCYTOSIS 1+ (5-10/OIF) (0-5/OIF); BAND NEUTROPHILS 18 %; LYMPHOCYTES 21 %; LYMPHOCYTES ABSOLUTE (CALC) 0.06 10/3/uL (0.67-4.30); MONOCYTES 50 %; MONOCYTES ABSOLUTE (CALC) 0.15 10/3/uL (0.21-1.20); NEUTROPHILS ABSOLUTE (CALC) 0.09 10/3/uL (2.02-8.40); SEGMENTED NEUTROPHIL (0) 11 %; TOTAL NUCLEATED CELLS 38
[2017-01-20 22:19] LABS: BURR CELLS 1+ (3-10/OIF) (0-2/OIF); POIKILOCYTOSIS 1+ (5-10/OIF) (0-5/OIF)
[2017-01-21 02:08] LABS: HEMATOCRIT 25.8 % (40.0-51.0); HEMOGLOBIN 9.2 g/dL (13.6-17.8); MEAN CORPUS HGB CONC 35.7 g/dL (32.0-36.0); MEAN CORPUSCULAR HEMOGLOB 31.1 pg (26.0-34.0); MEAN CORPUSCULAR VOLUME 87.2 fL (80-100); MEAN PLATELET VOLUME 10.1 fL (9.2-13.0); RBC DISTRIBUTION WIDTH 17.3 % (12.0-16.0); RED CELL COUNT 2.96 10/6/uL (4.7-6.1)
[2017-01-21 02:09] LABS: MANUAL DIFF YES %; PLATELET COUNT 29 10/3/uL (150-400); WHITE BLOOD CELLS 0.4 10/3/uL (4.5-10.5)
[2017-01-21 02:25] LABS: A/G RATIO 0.5 (0.7-1.9); ALBUMIN 1.4 G/DL (3.5-5.0); ALKALINE PHOSPHATASE 41 U/L (45-117); BUN (BLOOD UREA NITROGEN) 20 MG/DL (6-23); CHLORIDE, SERUM 104 MMOL/L (96-112); CO2 (CARBON DIOXIDE) 24 MMOL/L (24-34); CREATININE 1.61 MG/DL (0.70-1.30); GFR AFRICAN AMERICAN 50 ML/MIN (>=60); GFR NON AFRICAN AMERICAN 43 ML/MIN (>=60); GLOBULIN 3.1 G/DL (2.5-4.1); GLUCOSE, SERUM 61 MG/DL (60-99); PHOSPHORUS, SERUM 2.2 MG/DL (2.5-4.5); SGOT(AST) 106 U/L (5-40); SGPT(ALT) 83 U/L (5-65); SODIUM, SERUM 142 MMOL/L (135-148); TOTAL BILIRUBIN 3.6 MG/DL (0-1.2); TOTAL PROTEIN 4.5 G/DL (6.0-8.5)
[2017-01-21 02:30] LABS: CALCIUM, SERUM 7.9 MG/DL (8.5-10.4)
[2017-01-21 04:01] LABS: INSTRUMENT SERIAL # 35151; pH 7.39 (7.37-7.43)
[2017-01-21 04:02] LABS: BE (BASE EXCESS) -3.6 MEQ/L (0 +/- 2.5); CARBOXYHEMOGLOBIN 0.3 % (0-3); HCO3 (ACTUAL BICARBONATE) 20.8 MEQ/L (23-27); HEMOBLOGIN CONTENT 9.9 G/DL (14-18); METHEMOGLOBIN 0.8 % (0-3); MODE CMV; O2 CONTENT 13.3 VOL% (18-24); PCO2 (CO2 TENSION) 35 MMHG (35-45); PO2 (O2 TENSION) 86 MMHG (79-93); SAMPLE Arterial; TIDAL VOLUME 500 ML
[2017-01-21 07:11] LABS: ANISOCYTOSIS 1+ (5-10/OIF) (0-5/OIF); BAND NEUTROPHILS 60 %; EOSINOPHILS 10 %; EOSINOPHILS ABSOLUTE (CALC) 0.04 10/3/uL (0.0-0.53); LYMPHOCYTES 30 %; LYMPHOCYTES ABSOLUTE (CALC) 0.12 10/3/uL (0.67-4.30); NEUTROPHILS ABSOLUTE (CALC) 0.24 10/3/uL (2.02-8.40); TOTAL NUCLEATED CELLS 10
[2017-01-21 07:12] LABS: BURR CELLS 1+ (3-10/OIF) (0-2/OIF)
[2017-01-21 08:40] LABS: HEMATOCRIT 25.6 % (40.0-51.0); HEMOGLOBIN 8.5 g/dL (13.6-17.8); MEAN CORPUSCULAR HEMOGLOB 28.8 pg (26.0-34.0); MEAN CORPUSCULAR VOLUME 86.8 fL (80-100); MEAN PLATELET VOLUME 10.3 fL (9.2-13.0); RBC DISTRIBUTION WIDTH 17.5 % (12.0-16.0); RED CELL COUNT 2.95 10/6/uL (4.7-6.1)
[2017-01-21 08:41] LABS: MEAN CORPUS HGB CONC 33.2 g/dL (32.0-36.0); PLATELET COUNT 18 10/3/uL (150-400); WHITE BLOOD CELLS 0.6 10/3/uL (4.5-10.5)
[2017-01-21 08:42] LABS: MANUAL DIFF YES %
[2017-01-21 08:51] LABS: BUN (BLOOD UREA NITROGEN) 19 MG/DL (6-23); CALCIUM, SERUM 7.7 MG/DL (8.5-10.4); CHLORIDE, SERUM 101 MMOL/L (96-112); CO2 (CARBON DIOXIDE) 24 MMOL/L (24-34); CREATININE 1.58 MG/DL (0.70-1.30); GFR AFRICAN AMERICAN 51 ML/MIN (>=60); GFR NON AFRICAN AMERICAN 44 ML/MIN (>=60); GLUCOSE, SERUM 72 MG/DL (60-99); POTASSIUM, SERUM 3.9 MMOL/L (3.5-5.3); SODIUM, SERUM 139 MMOL/L (135-148)
[2017-01-21 09:58] LABS: ANISOCYTOSIS 1+ (5-10/OIF) (0-5/OIF); BAND NEUTROPHILS 45 %; IMMATURE GRANS ABSOLUTE (CALC) 0.09 10/3/uL (0.0-0.11); LYMPHOCYTES 10 %; LYMPHOCYTES ABSOLUTE (CALC) 0.06 10/3/uL (0.67-4.30); METAMYELOCYTES 15 %; MONOCYTES 10 %; MONOCYTES ABSOLUTE (CALC) 0.06 10/3/uL (0.21-1.20); NEUTROPHILS ABSOLUTE (CALC) 0.39 10/3/uL (2.02-8.40); SEGMENTED NEUTROPHIL (0) 20 %; TOTAL NUCLEATED CELLS 20
[2017-01-21 10:04] LABS: INTERNATIONAL NORMAL RATI 1.7 UNITS (-); PARTIAL THROMBO TIME 39.9 SEC (22.5-37.2)
[2017-01-21 15:13] LABS: HEMATOCRIT 25.4 % (40.0-51.0); HEMOGLOBIN 8.8 g/dL (13.6-17.8); MEAN CORPUS HGB CONC 34.6 g/dL (32.0-36.0); MEAN CORPUSCULAR HEMOGLOB 29.9 pg (26.0-34.0); MEAN CORPUSCULAR VOLUME 86.4 fL (80-100); MEAN PLATELET VOLUME 10.4 fL (9.2-13.0); RBC DISTRIBUTION WIDTH 17.6 % (12.0-16.0); RED CELL COUNT 2.94 10/6/uL (4.7-6.1)
[2017-01-21 15:18] LABS: MANUAL DIFF YES %; PLATELET COUNT 11 10/3/uL (150-400); WHITE BLOOD CELLS 0.9 10/3/uL (4.5-10.5)
[2017-01-21 15:33] LABS: BUN (BLOOD UREA NITROGEN) 19 MG/DL (6-23); CHLORIDE, SERUM 101 MMOL/L (96-112); CO2 (CARBON DIOXIDE) 24 MMOL/L (24-34); CREATININE 1.58 MG/DL (0.70-1.30); GFR AFRICAN AMERICAN 51 ML/MIN (>=60); GFR NON AFRICAN AMERICAN 44 ML/MIN (>=60); GLUCOSE, SERUM 72 MG/DL (60-99); POTASSIUM, SERUM 3.8 MMOL/L (3.5-5.3); SODIUM, SERUM 140 MMOL/L (135-148)
[2017-01-21 15:50] LABS: BAND NEUTROPHILS 24 %; IMMATURE GRANS ABSOLUTE (CALC) 0.04 10/3/uL (0.0-0.11); LYMPHOCYTES 14 %; LYMPHOCYTES ABSOLUTE (CALC) 0.13 10/3/uL (0.67-4.30); METAMYELOCYTES 4 %; MONOCYTES 36 %; MONOCYTES ABSOLUTE (CALC) 0.32 10/3/uL (0.21-1.20); NEUTROPHILS ABSOLUTE (CALC) 0.41 10/3/uL (2.02-8.40); SEGMENTED NEUTROPHIL (0) 22 %; TOTAL NUCLEATED CELLS 50
[2017-01-21 15:51] LABS: ANISOCYTOSIS 1+ (5-10/OIF) (0-5/OIF); BURR CELLS 1+ (3-10/OIF) (0-2/OIF); TEARDROP SHAPED RBCS OCC (0-2/OIF)
[2017-01-21 20:09] LABS: HEMATOCRIT 24.6 % (40.0-51.0); HEMOGLOBIN 8.5 g/dL (13.6-17.8); MEAN CORPUS HGB CONC 34.6 g/dL (32.0-36.0); MEAN CORPUSCULAR HEMOGLOB 29.9 pg (26.0-34.0); MEAN CORPUSCULAR VOLUME 86.6 fL (80-100); MEAN PLATELET VOLUME 9.1 fL (9.2-13.0); RBC DISTRIBUTION WIDTH 17.7 % (12.0-16.0); RED CELL COUNT 2.84 10/6/uL (4.7-6.1)
[2017-01-21 20:11] LABS: PLATELET COUNT 22 10/3/uL (150-400); WHITE BLOOD CELLS 1.2 10/3/uL (4.5-10.5)
[2017-01-21 20:12] LABS: MANUAL DIFF YES %
[2017-01-21 20:22] LABS: BUN (BLOOD UREA NITROGEN) 18 MG/DL (6-23); CALCIUM, SERUM 8.4 MG/DL (8.5-10.4); CHLORIDE, SERUM 101 MMOL/L (96-112); CO2 (CARBON DIOXIDE) 23 MMOL/L (24-34); CREATININE 1.61 MG/DL (0.70-1.30); GFR AFRICAN AMERICAN 50 ML/MIN (>=60); GFR NON AFRICAN AMERICAN 43 ML/MIN (>=60); GLUCOSE, SERUM 75 MG/DL (60-99); SODIUM, SERUM 139 MMOL/L (135-148)
[2017-01-21 20:33] LABS: BAND NEUTROPHILS 45 %; IMMATURE GRANS ABSOLUTE (CALC) 0.06 10/3/uL (0.0-0.11); LYMPHOCYTES 10 %; LYMPHOCYTES ABSOLUTE (CALC) 0.12 10/3/uL (0.67-4.30); MONOCYTES 25 %; MYELOCYTES 5 %; NEUTROPHILS ABSOLUTE (CALC) 0.72 10/3/uL (2.02-8.40); SEGMENTED NEUTROPHIL (0) 15 %; TOTAL NUCLEATED CELLS 100
[2017-01-21 20:34] LABS: ANISOCYTOSIS 1+ (5-10/OIF) (0-5/OIF); TEARDROP SHAPED RBCS OCC (0-2/OIF)
[2017-01-21 20:35] LABS: SPHEROCYTES OCC (0-2/OIF)
[2017-01-22 02:42] LABS: HEMATOCRIT 23.7 % (40.0-51.0); HEMOGLOBIN 8.3 g/dL (13.6-17.8); MANUAL DIFF YES %; MEAN CORPUSCULAR HEMOGLOB 30.9 pg (26.0-34.0); MEAN CORPUSCULAR VOLUME 88.1 fL (80-100); MEAN PLATELET VOLUME 9.8 fL (9.2-13.0); PLATELET COUNT 15 10/3/uL (150-400); RBC DISTRIBUTION WIDTH 17.7 % (12.0-16.0); RED CELL COUNT 2.69 10/6/uL (4.7-6.1); WHITE BLOOD CELLS 1.3 10/3/uL (4.5-10.5)
[2017-01-22 02:58] LABS: A/G RATIO 0.5 (0.7-1.9); ALBUMIN 1.5 G/DL (3.5-5.0); ALKALINE PHOSPHATASE 45 U/L (45-117); BUN (BLOOD UREA NITROGEN) 18 MG/DL (6-23); CALCIUM, SERUM 8.3 MG/DL (8.5-10.4); CHLORIDE, SERUM 101 MMOL/L (96-112); CO2 (CARBON DIOXIDE) 24 MMOL/L (24-34); CREATININE 1.66 MG/DL (0.70-1.30); GFR AFRICAN AMERICAN 48 ML/MIN (>=60); GFR NON AFRICAN AMERICAN 42 ML/MIN (>=60); GLOBULIN 2.8 G/DL (2.5-4.1); GLUCOSE, SERUM 64 MG/DL (60-99); PHOSPHORUS, SERUM 1.4 MG/DL (2.5-4.5); POTASSIUM, SERUM 3.9 MMOL/L (3.5-5.3); SGOT(AST) 77 U/L (5-40); SGPT(ALT) 61 U/L (5-65); SODIUM, SERUM 139 MMOL/L (135-148); TOTAL PROTEIN 4.3 G/DL (6.0-8.5)
[2017-01-22 02:59] LABS: TOTAL BILIRUBIN 4.3 MG/DL (0-1.2)
[2017-01-22 03:46] LABS: ALLENS TEST Pos; BE (BASE EXCESS) -3.7 MEQ/L (0 +/- 2.5); CARBOXYHEMOGLOBIN 0.3 % (0-3); HCO3 (ACTUAL BICARBONATE) 20.4 MEQ/L (23-27); HEMOBLOGIN CONTENT 8.9 G/DL (14-18); INSTRUMENT SERIAL # 35151; METHEMOGLOBIN 0.7 % (0-3); MODE CMV; O2 CONTENT 11.8 VOL% (18-24); OPERATOR ID 17537; PCO2 (CO2 TENSION) 33 MMHG (35-45); PO2 (O2 TENSION) 76 MMHG (79-93); SAMPLE Arterial; TIDAL VOLUME 500 ML; pH 7.41 (7.37-7.43)
[2017-01-22 07:15] LABS: ANISOCYTOSIS 1+ (5-10/OIF) (0-5/OIF); BAND NEUTROPHILS 46 %; LYMPHOCYTES 8 %; METAMYELOCYTES 2 %; MONOCYTES 6 %; MONOCYTES ABSOLUTE (CALC) 0.08 10/3/uL (0.21-1.20); MYELOCYTES 6 %; NEUTROPHILS ABSOLUTE (CALC) 1.01 10/3/uL (2.02-8.40); SEGMENTED NEUTROPHIL (0) 32 %; TOTAL NUCLEATED CELLS 50
[2017-01-22 07:16] LABS: OVALOCYTES 1+ (3-10/OIF) (0-2/OIF); SCHISTOCYTES OCC (0-2/OIF)
[2017-01-22 08:54] LABS: HEMOGLOBIN 8.3 g/dL (13.6-17.8); MANUAL DIFF YES %; MEAN CORPUS HGB CONC 34.6 g/dL (32.0-36.0); MEAN CORPUSCULAR HEMOGLOB 30.5 pg (26.0-34.0); MEAN CORPUSCULAR VOLUME 88.2 fL (80-100); MEAN PLATELET VOLUME 9.8 fL (9.2-13.0); PLATELET COUNT 10 10/3/uL (150-400); RBC DISTRIBUTION WIDTH 17.7 % (12.0-16.0); RED CELL COUNT 2.72 10/6/uL (4.7-6.1); WHITE BLOOD CELLS 1.5 10/3/uL (4.5-10.5)
[2017-01-22 09:05] LABS: BUN (BLOOD UREA NITROGEN) 17 MG/DL (6-23); CALCIUM, SERUM 8.4 MG/DL (8.5-10.4); CHLORIDE, SERUM 100 MMOL/L (96-112); CO2 (CARBON DIOXIDE) 23 MMOL/L (24-34); CREATININE 1.59 MG/DL (0.70-1.30); GFR AFRICAN AMERICAN 51 ML/MIN (>=60); GFR NON AFRICAN AMERICAN 44 ML/MIN (>=60); GLUCOSE, SERUM 70 MG/DL (60-99); SODIUM, SERUM 139 MMOL/L (135-148)
[2017-01-22 10:12] LABS: VANCOMYCIN TROUGH 22.6 MCG/ML (10.0-20.0)
[2017-01-22 10:34] LABS: BAND NEUTROPHILS 71 %; IMMATURE GRANS ABSOLUTE (CALC) 0.06 10/3/uL (0.0-0.11); LYMPHOCYTES 8 %; LYMPHOCYTES ABSOLUTE (CALC) 0.12 10/3/uL (0.67-4.30); METAMYELOCYTES 3 %; MONOCYTES 4 %; MONOCYTES ABSOLUTE (CALC) 0.06 10/3/uL (0.21-1.20); MYELOCYTES 1 %; NEUTROPHILS ABSOLUTE (CALC) 1.26 10/3/uL (2.02-8.40); SEGMENTED NEUTROPHIL (0) 13 %; TOTAL NUCLEATED CELLS 100
[2017-01-22 10:35] LABS: ANISOCYTOSIS 1+ (5-10/OIF) (0-5/OIF); OVALOCYTES 1+ (3-10/OIF) (0-2/OIF)
[2017-01-22 11:35] LABS: ALLENS TEST Pos; BE (BASE EXCESS) -3.8 MEQ/L (0 +/- 2.5); CARBOXYHEMOGLOBIN 0.3 % (0-3); HCO3 (ACTUAL BICARBONATE) 20.7 MEQ/L (23-27); HEMOBLOGIN CONTENT 9.3 G/DL (14-18); INSTRUMENT SERIAL # 35151; METHEMOGLOBIN 0.5 % (0-3); O2 CONTENT 12.1 VOL% (18-24); PCO2 (CO2 TENSION) 35 MMHG (35-45); PO2 (O2 TENSION) 68 MMHG (79-93); SAMPLE Arterial; TIDAL VOLUME 500 ML; pH 7.39 (7.37-7.43)
[2017-01-22 14:40] LABS: HEMATOCRIT 25.2 % (40.0-51.0); HEMOGLOBIN 8.5 g/dL (13.6-17.8); MEAN CORPUS HGB CONC 33.7 g/dL (32.0-36.0); MEAN CORPUSCULAR HEMOGLOB 29.6 pg (26.0-34.0); MEAN CORPUSCULAR VOLUME 87.8 fL (80-100); RED CELL COUNT 2.87 10/6/uL (4.7-6.1)
[2017-01-22 14:46] LABS: PLATELET COUNT 7 10/3/uL (150-400); WHITE BLOOD CELLS 2.1 10/3/uL (4.5-10.5)
[2017-01-22 14:47] LABS: MANUAL DIFF YES %
[2017-01-22 14:50] LABS: BUN (BLOOD UREA NITROGEN) 17 MG/DL (6-23); CALCIUM, SERUM 8.1 MG/DL (8.5-10.4); CHLORIDE, SERUM 100 MMOL/L (96-112); CO2 (CARBON DIOXIDE) 22 MMOL/L (24-34); CREATININE 1.55 MG/DL (0.70-1.30); GFR AFRICAN AMERICAN 53 ML/MIN (>=60); GFR NON AFRICAN AMERICAN 45 ML/MIN (>=60); GLUCOSE, SERUM 72 MG/DL (60-99); PHOSPHORUS, SERUM 3.1 MG/DL (2.5-4.5); POTASSIUM, SERUM 3.7 MMOL/L (3.5-5.3); SODIUM, SERUM 138 MMOL/L (135-148)
[2017-01-22 15:23] LABS: BAND NEUTROPHILS 40 %; LYMPHOCYTES 5 %; METAMYELOCYTES 2 %; MONOCYTES 12 %; MYELOCYTES 1 %; SEGMENTED NEUTROPHIL (0) 40 %; TOTAL NUCLEATED CELLS 100
[2017-01-22 15:27] LABS: ANISOCYTOSIS 1+ (5-10/OIF) (0-5/OIF)
[2017-01-22 15:29] LABS: OVALOCYTES 1+ (3-10/OIF) (0-2/OIF)
== END 2017-01-23 23:26 | disposition expired | DRG 823 ==
LOC: ER 13:36 → 4EA 13:41 → IMCU 01-16 15:39 → CCU 01-17 11:22
PROVIDERS: Emergency Medicine; Internal Medicine Hematology & Oncology; Internal Medicine Infectious Disease; Internal Medicine Nephrology; Internal Medicine Pulmonary Disease; Physician Assistant
PROC: 5A1945Z Respiratory Ventilation, 24-96 Consecutive Hours (ICD-10-PCS; 2016-12-31)
PROC: 07DR3ZX Extraction of Iliac Bone Marrow, Percutaneous Approach, Diagnostic (ICD-10-PCS; 2016-12-31)
PROC: 30233N1 Transfusion of Nonautologous Red Blood Cells into Peripheral Vein, Percutaneous Approach (ICD-10-PCS; 2016-12-31)
PROC: 02HV33Z Insertion of Infusion Device into Superior Vena Cava, Percutaneous Approach (ICD-10-PCS; 2017-01-01)
PROC: 4A02X4A Measurement of Cardiac Electrical Activity, Guidance, External Approach (ICD-10-PCS; 2017-01-01)
PROC: 02HV33Z Insertion of Infusion Device into Superior Vena Cava, Percutaneous Approach (ICD-10-PCS; principal; 2017-01-02)
PROC: 4A02X4A Measurement of Cardiac Electrical Activity, Guidance, External Approach (ICD-10-PCS; 2017-01-02)
PROC: 3E03305 Introduction of Other Antineoplastic into Peripheral Vein, Percutaneous Approach (ICD-10-PCS; 2017-01-02)
PROC: 30233R1 Transfusion of Nonautologous Platelets into Peripheral Vein, Percutaneous Approach (ICD-10-PCS; 2017-01-05)
PROC: 07DR3ZX Extraction of Iliac Bone Marrow, Percutaneous Approach, Diagnostic (ICD-10-PCS; 2017-01-16)
PROC: 5A09457 Assistance with Respiratory Ventilation, 24-96 Consecutive Hours, Continuous Positive Airway Pressure (ICD-10-PCS; 2017-01-16)
PROC: 0Q933ZX Drainage of Left Pelvic Bone, Percutaneous Approach, Diagnostic (ICD-10-PCS; 2017-01-17)
PROC: 0BH17EZ Insertion of Endotracheal Airway into Trachea, Via Natural or Artificial Opening (ICD-10-PCS; 2017-01-17)
PROC: 05HM33Z Insertion of Infusion Device into Right Internal Jugular Vein, Percutaneous Approach (ICD-10-PCS; 2017-01-17)
PROC: 02HV33Z Insertion of Infusion Device into Superior Vena Cava, Percutaneous Approach (ICD-10-PCS; 2017-01-17)
PROC: 4A02X4A Measurement of Cardiac Electrical Activity, Guidance, External Approach (ICD-10-PCS; 2017-01-17)
PROC: 30233K1 Transfusion of Nonautologous Frozen Plasma into Peripheral Vein, Percutaneous Approach (ICD-10-PCS; 2017-01-17)
PROC: 0BH17EZ Insertion of Endotracheal Airway into Trachea, Via Natural or Artificial Opening (ICD-10-PCS; 2017-01-17)
DX: C92.Z0 Other myeloid leukemia not having achieved remission (principal); A41.9 Sepsis, unspecified organism; J96.00 Acute respiratory failure, unspecified whether with hypoxia or hypercapnia; R65.21 Severe sepsis with septic shock; D65 Disseminated intravascular coagulation [defibrination syndrome]; J15.211 Pneumonia due to Methicillin susceptible Staphylococcus aureus; D61.810 Antineoplastic chemotherapy induced pancytopenia; N17.9 Acute kidney failure, unspecified; K52.1 Toxic gastroenteritis and colitis; I47.1 Supraventricular tachycardia; K51.00 Ulcerative (chronic) pancolitis without complications; I48.92 Unspecified atrial flutter; D69.6 Thrombocytopenia, unspecified; K72.90 Hepatic failure, unspecified without coma; I10 Essential (primary) hypertension; Z66 Do not resuscitate; D63.8 Anemia in other chronic diseases classified elsewhere; K12.1 Other forms of stomatitis; I71.4 Abdominal aortic aneurysm, without rupture; K52.9 Noninfective gastroenteritis and colitis, unspecified; K63.89 Other specified diseases of intestine; Z83.3 Family history of diabetes mellitus; Z87.891 Personal history of nicotine dependence; L27.0 Generalized skin eruption due to drugs and medicaments taken internally; T37.8X5A Adverse effect of other specified systemic anti-infectives and antiparasitics, initial encounter; D70.9 Neutropenia, unspecified; R50.81 Fever presenting with conditions classified elsewhere; K37 Unspecified appendicitis
CPT/HCPCS: 31500; 31720; 36415; 36430; 36556; 36569; 36593; 36600; 38220; 38221; 71010; 71020; 71260; 74000; 74177; 76705; 80048; 80053; 80069; 80076; 80202; 81001; 82043; 82330; 82533; 82570; 82607; 82746; 82805; 83605; 83615; 83690; 83735; 83880; 84100; 84145; 84300; 84443; 84484; 84550; 85014; 85018; 85025; 85045; 85384; 85610; 85730; 86850; 86900; 86901; 86920; 87040; 87070; 87077; 87186; 87205; 87493; 87493-59; 87641; 88305; 88311; 88313; 88341; 88342; 90945; 93005; 93306; 94002; 94003; 94640; 94660; 94770; 99285; A9270-GY; C1751; C1752; C1894; C9113; J0133; J0153; J0282; J0610; J0692; J1160; J1170; J1200; J1450; J1630; J1940; J2370; J2405; J2550; J2997; J3010; J3370; J9065; J9100; J9211; P9016; P9037; P9040; P9045; P9047; P9059; Q9967